=== PATIENT | male | born 1955 | race Caucasian/White ===

== ENCOUNTER → 2018-02-06 | Outpatient (CLI) | END | disposition home or self-care (01) ==

== ENCOUNTER 2018-05-18 08:05 | Inpatient (IN) | payer BC ==
[~2018-05-18] VITALS: Ht 170.2 cm; Wt 69.8 kg
[2018-07-07] VITALS (23 sets, daily range): BP systolic 85–120; BP diastolic 48–78; PULSE 73–86; RESP 12–28; Ht 170.2 cm; Wt 69.8 kg
[2018-07-07] MEDS ORDERED: ROCURONIUM 50 MG INJ ONE ×2 (07:00→08:12)
[2018-07-07] MEDS ORDERED: CELECOXIB 200 MG CAP PO ONE (07:00)
[2018-07-07] MEDS ORDERED: LACTATED RINGER'S 1,000 ML IV* SCH (07:00)
[2018-07-07] MEDS ORDERED: ACETAMINOPHEN 1000MG/100ML IV 100 ML IVPB ONE (07:00)
[2018-07-07] MEDS ORDERED: VANCOMYCIN 1 GM/NS (PMX) 250 ML FOR WT<80 KG IVPB ONE (07:00)
[2018-07-07] MEDS ORDERED: LANSOPRAZOLE 30 MG CAP PO ONE (07:00)
[2018-07-07] MEDS ORDERED: ONDANSETRON 4 MG INJ IV ONE (07:00)
[2018-07-07] MEDS ORDERED: CEFAZOLIN 2 GM/50 ML (PMX) 50 ML IVPB ONE (07:00)
[2018-07-07] MEDS ORDERED: oxyCODONE (CR) 10 MG TAB [oxyCONTIN] PO ONE (07:00)
--- NOTE | 2018-07-07 07:23 | HPN ---
Date/Time of Note Date/Time of Note DATE: 07/07/18 TIME: 07:22 Interval H&P Admission Note Pt. seen H&P reviewed: No system changes Patient denies fever, chills, shortness of breath, chest pain, nausea/vomiting, constipation, diarrhea, numbness, and tingling. MUSCULOSKELETAL: Right lower extremity Skin intact. Well-healed midline incision as well as small other incisions in the lateral aspect of the knee. The knee is erythematous. There is a large subcutaneous abscess over the anterior medial knee. Large effusion. Sensation decreased to light touch in a sural, saphenous, deep peroneal, superficial peroneal, medial and lateral plantar nerve distribution. This decrease in sensation is most intense over the plantar aspect of the foot. Motor is intact, patient able to dorsiflex and plantarflex ankle and extend and flex great toe. Dorsalis Pedis pulse +2, Brisk capillary refill. Compartments are soft. Calves non-tender to palpation bilaterally. EZE BYERS MD July 07, 2018 07:23
[2018-07-07] MEDS ORDERED: METHYLENE BLUE 50 MG/10 ML AMPUL ONE (07:48)
--- NOTE | 2018-07-07 07:50 | PREAC ---
Date/Time of Note Date/Time of Note DATE: 07/07/18 TIME: 07:49 Anesthesia Eval and Record Evaluation Time Pre-Procedure Interview DATE: 07/07/18 TIME: 07:49 Age 63 Sex male NPO: 8 hrs Preoperative diagnosis infected right total knee arthroplasty Planned procedure right total knee stage 1 revision Past Medical History Past Medical History: Includes Pulm: Other (40 PY SMOKING, QUIT 1 YEAR AGO) Heme: Anemia Surgery & Anesthesia Issues No known issue Meds Anticoagulation: No Beta Ulises within 24 hr: No Reason Beta Ulises not given: Pt. not on B-Ulises No Active Prescriptions or Reported Meds Current Medications Lactated Ringer's 1,000 ml @ 125 mls/hr Q8H IV* Last administered on 07/07/18at 06:32; Admin Dose 125 MLS/HR; Start 07/07/18 at 07:00; Stop 07/07/18 at 14:59 Vancomycin HCl 250 ml @ 250 mls/hr PRE-OP ONCE IVPB Last administered on 07/07/18at 06:31; Admin Dose 250 MLS/HR; Start 07/07/18 at 07:00; Stop 07/07/18 at 07:59 Tranexamic Acid 100 ml @ 200 mls/hr AT INCISION ONCE IVPB ; Start 07/07/18 at 08:00; Stop 07/07/18 at 08:29 Tranexamic Acid 100 ml @ 200 mls/hr AT CLOSING ONCE IVPB ; Start 07/07/18 at 13:00; Stop 07/07/18 at 13:29 Meds reviewed: Yes Allergies Coded Allergies: No Known Allergy (Unverified , 06/20/18) Allergies Reviewed: Yes Labs/Studies Labs Reviewed: Reviewed by anesthesiologist Blood Bank Test 07/07/18 06:15 Antibody Screen NEGATIVE Blood Product Summary Counts Blood Type A POSITIVE Crossmatch Red Blood Cells test: N/A Studies: ECG (nl), CXR (nl) Pre-procedure Exam Last vitals Vital Signs Date Temp Pulse Resp B/P (MAP) Pulse Ox O2 O2 Flow FiO2 Time Delivery Rate 07/07/18 97.8 86 18 108/78 98 Room Air 06:55 (88) Airway: Adequate mouth opening, Adequate thyromental dist Mallampati: Mallampati II Teeth: Normal Lung: Normal Heart: Normal ASA Physical Status ASA physical status: 1 Emergency: None Planned Anesthetic General/MAC: MAC Planned Pain Management Parenteral pain med Pre-operative Attestations Prior to commencing anesthesia and surgery, the patient was re-evaluated, there was verification of: *The patient's identity *The results of appropriate recent lab work and preoperative vital signs *The above evaluation not changing prior to induction *Anesthetic plan, risk benefits, alternative and complications discussed with patient/family; questions answered; patient/family understands, accepts and wishes to proceed. Nick Garvin M.D. July 07, 2018 07:50
[2018-07-07] MEDS: VANCOMYCIN 1 GM INJ TOP SCH ×4 (08:00→10:48)
[2018-07-07] MEDS ORDERED: TRANEXAMIC ACID 1GM/100ML(PMX) 100 ML PRE-OP IVPB ONE (08:00)
[2018-07-07] MEDS: TOBRAMYCIN 1.2 GM POWDER TOP SCH ×4 (08:00→10:39)
[2018-07-07] MEDS ORDERED: NEOSTIGMINE 3 MG/3 ML SYRINGE ONE (08:12)
[2018-07-07] MEDS ORDERED: FENTAnyl 50 MCG/ML VIAL ONE (08:12)
[2018-07-07] MEDS ORDERED: MIDAZOLAM 1 MG/ML 2 ML INJ ONE (08:12)
[2018-07-07] MEDS ORDERED: DEXAMETHASONE 4 MG/ML 5 ML INJ ONE (08:12)
[2018-07-07] MEDS ORDERED: ONDANSETRON 4 MG INJ ONE (08:12)
[2018-07-07] MEDS ORDERED: GLYCOPYRROLATE 0.4 MG INJ ONE (08:12)
[2018-07-07] MEDS ORDERED: CEFAZOLIN 1 GM INJ ONE (08:12)
[2018-07-07] MEDS ORDERED: morphine SULFATE/PF (10 MG/10 ML) INJ ONE (08:12)
[2018-07-07] MEDS ORDERED: PROPOFOL 20 ML ONE (08:12)
[2018-07-07] MEDS ORDERED: EPINEPHrine 1 MG INJ ONE (08:13)
[2018-07-07] MEDS ORDERED: TOBRAMYCIN 1.2 GM POWDER ONE (09:23)
[2018-07-07] MEDS ORDERED: TRANEXAMIC ACID 1GM/100ML(PMX) 100 ML AT CLOSING IVPB ONE (13:00)
[2018-07-07] MEDS ORDERED: ROPIVACAINE 0.5 % 30 ML VIAL ONE (14:05)
[2018-07-07] MEDS ORDERED: EPHEDrine SULFATE 50 MG/5 ML SYG IV PRN (14:30)
[2018-07-07] MEDS ORDERED: MEPERIDINE 25 MG INJ IV PRN (14:30)
[2018-07-07] MEDS ORDERED: hydrALAzine 20 MG INJ IV PRN (14:30)
[2018-07-07] MEDS ORDERED: NALBUPHINE HCL (10 MG/1 ML) INJ IV PRN (14:30)
[2018-07-07] MEDS ORDERED: MIDAZOLAM 1 MG/ML 2 ML INJ IV PRN (14:30)
[2018-07-07] MEDS ORDERED: HYDROmorphONE 1 MG/5 ML IV SYRINGE IV PRN ×3 (14:30)
[2018-07-07] MEDS ORDERED: IPRATROPIUM (NEB) 0.5 MG/2.5 ML AMP HHN PRN (14:30)
[2018-07-07] MEDS ORDERED: ZOLPIDEM 5 MG TAB PO PRN (14:30)
[2018-07-07] MEDS ORDERED: FENTAnyl 50 MCG/ML VIAL IV PRN ×3 (14:30)
[2018-07-07] MEDS ORDERED: TRIMETHOBENZAMIDE 100 MG/ML VIAL IM PRN ×2 (14:30)
[2018-07-07] MEDS ORDERED: ALBUTEROL 0.083% (NEB) 2.5 MG/3 ML AMP HHN PRN (14:30)
[2018-07-07] MEDS ORDERED: ONDANSETRON 4 MG INJ IV PRN ×2 (14:30)
[2018-07-07] MEDS ORDERED: HYDROmorphONE 0.5 MG/0.5 ML SYG IV PRN ×2 (14:30)
[2018-07-07] MEDS ORDERED: OXYCODONE/ACETAMINOPHEN (5/325) TAB PO PRN ×2 (14:30)
[2018-07-07] MEDS ORDERED: DIPHENHYDRAMINE 50 MG INJ IV PRN ×3 (14:30→15:30)
[2018-07-07] MEDS ORDERED: LABETALOL HCL 20MG INJ IV PRN (14:30)
[2018-07-07] MEDS ORDERED: NALOXONE (0.4 MG/ML) INJ IV PRN ×2 (14:30→15:30)
[2018-07-07] MEDS ORDERED: SUGAMMADEX SODIUM 200 MG/2 ML VIAL IV ONE (15:14)
--- NOTE | 2018-07-07 15:25 | PAC ---
Date/Time of Note Date/Time of Note DATE: 07/07/18 TIME: 15:25 Post-Anesthesia Notes Post-Anesthesia Note Last documented vital signs Vital Signs Date Temp Pulse Resp B/P (MAP) Pulse Ox O2 O2 Flow FiO2 Time Delivery Rate 07/07/18 97.8 86 18 108/78 98 Room Air 06:55 (88) Activity: WNL Respiratory function: WNL Cardiovascular function: WNL Mental status: Baseline Pain reasonably controlled: Yes Hydration appropriate: Yes Nausea/Vomiting absent: Yes Nick Garvin M.D. July 07, 2018 15:25
[2018-07-07] MEDS ORDERED: HYDROmorphONE 1 MG/ML SYG IV PRN (15:30)
[2018-07-07] MEDS ORDERED: BISACODYL 10 MG SUPP PR PRN (15:30)
[2018-07-07] MEDS ORDERED: BETHANECHOL 25 MG TAB PO PRN (15:30)
[2018-07-07] MEDS ORDERED: oxyCODONE 5 MG TAB PO PRN ×2 (15:30)
[2018-07-07] MEDS ORDERED: NA PHOSPHATE/BIPHOS 133 ML ENEMA PR PRN (15:30)
[2018-07-07] MEDS ORDERED: SENNA/DOCUSATE NA (8.6MG/50MG) TAB PO PRN (15:30)
[2018-07-07] MEDS ORDERED: DOCUSATE SODIUM 100 MG CAP PO ONE (15:30)
[2018-07-07] MEDS ORDERED: MAGNESIUM HYDROXIDE 30ML CUP PO PRN (15:30)
[2018-07-07] MEDS ORDERED: NACL 0.9% 3 ML SYG IV SCH (15:30)
--- NOTE | 2018-07-07 16:27 | CONS ---
Assessment/Plan Assessment/Plan Assessment/Plan (Daily) 63 yo man history of infected R knee prosthesis presents after first stage of elective total knee revision. #R knee revision - Agree with Percocet for post-op pain. - Agree with Zosyn and vanco as empiric antibiotics until cultures result. - PT, weight bearing per orthopedics. #Tobacco use - Patient reports quitting cigarettes but is now vaping - Ordered nicotine patch. Internal medicine will continue to follow. Thank you Dr. Salazar for the consult. Consultation Date/Type/Reason Admit Date/Time July 07, 2018 at 05:46 Date of Consultation: July 07, 2018 Type of Consult Internal Medicine Reason for Consultation Postoperative management Requesting Provider: EZE SALAZAR MD Date/Time of Note DATE: 07/07/18 TIME: 16:09 Hx of Present Illness Mr. Bo is a 63-year-old man with past medical history of arthritis and chronic infection of the right knee. The patient had multiple surgeries of the right knee starting with a R TKR in [facility] around 6 years ago. Apparently there was an infection and he has required a multi-stage surgery with antibiotic spacer. The patient had his latest surgery about 8 months ago at [facility]. As per the patient, his right knee joint was infected and he has been taking antibiotics as per the instructions of his primary care physicians. He also verbalized that he had a PICC line at one point of time for antimicrobial therapy. He was hospitalized at [facility] 06/21-06/23 with R knee pain and effusion. Dr. Salazar did an arthrocentesis which grew philip-sensitive enterobacter. He got IV vanco and zosyn in the hospital and was discharged on a course of Keflex and Bactrim. He then saw Dr. Salazar in clinic on 06/28 at which point antibiotics were stopped and a two-stage total knee revision with antibiotic spacer was planned. The days prior to admission he denies worsening symptoms. Pain well controlled by smoking cannabis. He has not taken prescribed [place]. Today 07/07 he was taken to OR for the elective first stage. Postoperative he is doing well. He denies recent fever, chills, night sweats, weight loss, anorexia, nausea, vomiting, abdominal pain, chest pain/pressure/palpitations, dyspnea, cough, diarrhea, constipation. Past Medical History Medical History: no pertinent history Home Meds No Active Prescriptions or Reported Meds Medications Current Medications Hydromorphone HCl (Dilaudid) 0.2 mg PACU PRN IV MILD PAIN 1-3; Start 07/07/18 at 14:30; Stop 07/07/18 at 21:00 Hydromorphone HCl (Dilaudid) 0.4 mg PACU PRN IV MOD PAIN 4-6; Start 07/07/18 at 14:30; Stop 07/07/18 at 21:00 Hydromorphone HCl (Dilaudid) 0.6 mg PACU PRN IV SEVERE PAIN 7-10; Start 07/07/18 at 14:30; Stop 07/07/18 at 21:00 Fentanyl (Sublimaze) 25 mcg PACU ORDER PRN IV MILD PAIN 1-3; Start 07/07/18 at 14:30; Stop 07/07/18 at 21:00 Fentanyl (Sublimaze) 50 mcg PACU ORDER PRN IV MOD PAIN 4-6; Start 07/07/18 at 14:30; Stop 07/07/18 at 21:00 Fentanyl (Sublimaze) 75 mcg PACU ORDER PRN IV SEVERE PAIN 7-10; Start 07/07/18 at 14:30; Stop 07/07/18 at 21:00 Oxycodone/ Acetaminophen (Percocet (5/ 325)) 1 tab PACU ORDER PRN PO .PAIN 1-5; Start 07/07/18 at 14:30; Stop 07/07/18 at 21:00 Oxycodone/ Acetaminophen (Percocet (5/ 325)) 2 tab PACU ORDER PRN PO .PAIN 6-10; Start 07/07/18 at 14:30; Stop 07/07/18 at 21:00 Ondansetron HCl (Zofran Inj) 4 mg PACU ORDER PRN IV NAUSEA/VOMITING; Start 07/07/18 at 14:30; Stop 07/07/18 at 21:00 Trimethobenzamide HCl (Tigan) 200 mg PACU ORDER PRN IM NAUSEA/VOMITING; Start 07/07/18 at 14:30; Stop 07/07/18 at 21:00 Labetalol HCl (Labetalol) 5 mg PACU ORDER PRN IV HIGH BLOOD PRESSURE; Start 07/07/18 at 14:30; Stop 07/07/18 at 21:00 Hydralazine HCl (Apresoline) 5 mg PACU ORDER PRN IV HIGH BLOOD PRESSURE; Start 07/07/18 at 14:30; Stop 07/07/18 at 21:00 Ephedrine Sulfate 5 mg PACU ORDER PRN IV BLOOD PRESSURE SUPPORT; Start 07/07/18 at 14:30; Stop 07/07/18 at 21:00 Albuterol (Proventil 0.083% (Neb)) 2.5 mg PACU ORDER PRN HHN .WHEEZING; Start 07/07/18 at 14:30; Stop 07/07/18 at 21:00 Ipratropium [place] (Atrovent 0.02% (Neb)) 0.5 mg PACU ORDER PRN HHN .WHEEZING; Start 07/07/18 at 14:30; Stop 07/07/18 at 21:00 Meperidine HCl (Demerol) 25 mg PACU ORDER PRN IV .RIGORS; Start 07/07/18 at 14:30; Stop 07/07/18 at 21:00 Diphenhydramine HCl (Benadryl) 25 mg PACU ORDER PRN IV .PRURITUS; Start 07/07/18 at 14:30; Stop 07/07/18 at 21:00 Midazolam HCl (Versed) 0.5 mg PACU ORDER PRN IV .ANXIETY; Start 07/07/18 at 14:30; Stop 07/07/18 at 21:00 Hydromorphone HCl (Dilaudid) 0.2 mg Q2H PRN IV .PAIN 1-5; Start 07/07/18 at 14:30; Stop 07/08/18 at 08:17 Hydromorphone HCl (Dilaudid) 0.4 mg Q2H PRN IV .PAIN 6-10; Start 07/07/18 at 14:30; Stop 07/08/18 at 08:17 Diphenhydramine HCl (Benadryl) 25 mg Q4H PRN IV .PRURITUS; Start 07/07/18 at 14:30; Stop 07/08/18 at 08:17 Nalbuphine HCl (Nubain) 10 mg Q4H PRN IV .PRURITUS; Start 07/07/18 at 14:30; Stop 07/08/18 at 08:17 Ondansetron HCl (Zofran Inj) 4 mg Q6H PRN IV .NAUSEA/VOMITING; Start 07/07/18 at 14:30; Stop 07/08/18 at 08:17 Trimethobenzamide HCl (Tigan) 200 mg Q6H PRN IM .NAUSEA/VOMITING; Start 07/07/18 at 14:30; Stop 07/08/18 at 08:17 Zolpidem Tartrate (Ambien) 5 mg HS MAY REPEAT X 1 PRN PO .INSOMNIA; Start 07/07/18 at 14:30; Stop 07/08/18 at 08:17 Naloxone HCl (Narcan) 0.2 mg Q2M PRN IV .RESP RATE; Start 07/07/18 at 14:30; Stop 07/08/18 at 08:17 Miscellaneous Information (* Miscellaneous Pharmacy Order) DURAMORPH: 0.2 MG SPI... GIVEN NEURAXIAL XX ; Start 07/07/18 at 14:30; Stop 07/08/18 at 08:17 Lactated Ringer's 1,000 ml @ 80 mls/hr [id number] IV ; Start 07/07/18 at 15:12 IV Flush (NS 3 ml) 3 ml PER PROTOCOL IV ; Start 07/07/18 at 15:30 Oxycodone HCl (Roxicodone) 15 mg Q4H PRN PO .PAIN; Start 07/07/18 at 15:30 Oxycodone HCl (Roxicodone) 10 mg Q4H PRN PO .PAIN; Start 07/07/18 at 15:30 Oxycodone HCl (Roxicodone) 5 mg Q4H PRN PO .PAIN; Start 07/07/18 at 15:30 Hydromorphone HCl (Dilaudid) 1 mg Q3H PRN IV .BREAKTHROUGH PAIN; Start 07/07/18 at 15:30 Acetaminophen (Tylenol Tab) 1,000 mg Q8 PO ; Start 07/07/18 at 22:00 Ondansetron HCl (Zofran Inj) 4 mg Q4H PRN IV NAUSEA/VOMITING; Start 07/08/18 at 15:30 Vancomycin HCl 250 ml @ 125 mls/hr Q12H IVPB ; Start 07/07/18 at 18:00 Gabapentin (Neurontin) 300 mg QHS PO ; Start 07/07/18 at 21:00 Pantoprazole (Protonix Tab) 40 mg DAILY@06 PO ; Start 07/09/18 at 06:00 Docusate Sodium (Colace) 200 mg BID PO ; Start 07/08/18 at 09:00; Stop 07/11/18 at 08:59 Simethicone (Mylicon) 80 mg TID PRN PO .GAS; Start 07/07/18 at 15:30 Senna/Docusate Sodium (Senokot-S) 2 tab BID PRN PO .CONSTIPATION; Start 07/07/18 at 15:30 Magnesium Hydroxide (Milk Of Mag) 30 ml HS PRN PO .CONSTIPATION; Start 07/07/18 at 15:30 Bisacodyl (Dulcolax Supp) 10 mg DAILY PRN [place] .CONSTIPATION; Start 07/07/18 at 15:30 Sodium Biphosphate/ Sodium Phosphate (Fleet Enema) 133 ml DAILY PRN WI .CONST IPATION; Start 07/07/18 at 15:30 Diphenhydramine HCl (Benadryl) 25 mg Q4H PRN IV .ITCHING; Start 07/07/18 at 15:30 Naloxone HCl (Narcan) 0.2 mg Q2M PRN IV .RESP RATE; Start 07/07/18 at 15:30 Bethanechol Chloride (Urecholine) 25 mg URINARY CATH D/C PRN PO UNABLE TO VOID; Start 07/07/18 at 15:30 Aspirin (Halfprin) 81 mg BID PO ; Start 07/08/18 at 09:00 Piperacillin Sod/ Tazobactam Sod 50 ml @ 100 mls/hr Q8 IVPB ; Start 07/07/18 at 22:00 Allergies: Coded Allergies: No Known Allergy (Unverified , 06/20/18) Past Surgical History 6 R knee surgeries total, most recently today 07/07. L knee total arthroplasty. Cholecystectomy Tonsillectomy L rotator cuff surgery. Social History Alcohol Use: occasionally Smoking Status: Current every day smoker (Uses vaporized nicotine. ) Drug Use: marijuana (as needed for knee pain) Exam/Review of Systems Exam Vitals Vital Signs Date Temp Pulse Resp B/P (MAP) Pulse Ox O2 O2 Flow FiO2 Time Delivery Rate 07/07/18 98.0 15:34 07/07/18 86 18 108/78 98 Room Air 06:55 (88) Exam Gen: Well developed man in no acute distress. Eyes: PERRL, no icterus HEENT: Clear oropharynx, moist mucous membranes Neck: Supple, nontender, no lymphadenopathy Card: Regular rate and rhythm, no murmurs Pulm: Clear to auscultation bilaterally Abd: Soft, nontender, nondistended. Ext: L knee scar well healed. R knee bandaged with sanguinous drainage from surgical drain. Peripheral toe wiggle and sensation intact. Skin: warm, dry, well perfused. Medications Medication Current Medications Hydromorphone HCl (Dilaudid) 0.2 mg PACU PRN IV MILD PAIN 1-3; Start 07/07/18 at 14:30; Stop 07/07/18 at 21:00 Hydromorphone HCl (Dilaudid) 0.4 mg PACU PRN IV MOD PAIN 4-6; Start 07/07/18 at 14:30; Stop 07/07/18 at 21:00 Hydromorphone HCl (Dilaudid) 0.6 mg PACU PRN IV SEVERE PAIN 7-10; Start 07/07/18 at 14:30; Stop 07/07/18 at 21:00 Fentanyl (Sublimaze) 25 mcg PACU ORDER PRN IV MILD PAIN 1-3; Start 07/07/18 at 14:30; Stop 07/07/18 at 21:00 Fentanyl (Sublimaze) 50 mcg PACU ORDER PRN IV MOD PAIN 4-6; Start 07/07/18 at 14:30; Stop 07/07/18 at 21:00 Fentanyl (Sublimaze) 75 mcg PACU ORDER PRN IV SEVERE PAIN 7-10; Start 07/07/18 at 14:30; Stop 07/07/18 at 21:00 Oxycodone/ Acetaminophen (Percocet (5/ 325)) 1 tab PACU ORDER PRN PO .PAIN 1-5; Start 07/07/18 at 14:30; Stop 07/07/18 at 21:00 Oxycodone/ Acetaminophen (Percocet (5/ 325)) 2 tab PACU ORDER PRN PO .PAIN 6-10; Start 07/07/18 at 14:30; Stop 07/07/18 at 21:00 Ondansetron HCl (Zofran Inj) 4 mg PACU ORDER PRN IV NAUSEA/VOMITING; Start 07/07/18 at 14:30; Stop 07/07/18 at 21:00 Trimethobenzamide HCl (Tigan) 200 mg PACU ORDER PRN IM NAUSEA/VOMITING; Start 07/07/18 at 14:30; Stop 07/07/18 at 21:00 Labetalol HCl (Labetalol) 5 mg PACU ORDER PRN IV HIGH BLOOD PRESSURE; Start 07/07/18 at 14:30; Stop 07/07/18 at 21:00 Hydralazine HCl (Apresoline) 5 mg PACU ORDER PRN IV HIGH BLOOD PRESSURE; Start 07/07/18 at 14:30; Stop 07/07/18 at 21:00 Ephedrine Sulfate 5 mg PACU ORDER PRN IV BLOOD PRESSURE SUPPORT; Start 07/07/18 at 14:30; Stop 07/07/18 at 21:00 Albuterol (Proventil 0.083% (Neb)) 2.5 mg PACU ORDER PRN HHN .WHEEZING; Start 07/07/18 at 14:30; Stop 07/07/18 at 21:00 Ipratropium [place] (Atrovent 0.02% (Neb)) 0.5 mg PACU ORDER PRN HHN .WHEEZING; Start 07/07/18 at 14:30; Stop 07/07/18 at 21:00 Meperidine HCl (Demerol) 25 mg PACU ORDER PRN IV .RIGORS; Start 07/07/18 at 14:30; Stop 07/07/18 at 21:00 Diphenhydramine HCl (Benadryl) 25 mg PACU ORDER PRN IV .PRURITUS; Start 07/07/18 at 14:30; Stop 07/07/18 at 21:00 Midazolam HCl (Versed) 0.5 mg PACU ORDER PRN IV .ANXIETY; Start 07/07/18 at 14:30; Stop 07/07/18 at 21:00 Hydromorphone HCl (Dilaudid) 0.2 mg Q2H PRN IV .PAIN 1-5; Start 07/07/18 at 14:30; Stop 07/08/18 at 08:17 Hydromorphone HCl (Dilaudid) 0.4 mg Q2H PRN IV .PAIN 6-10; Start 07/07/18 at 14:30; Stop 07/08/18 at 08:17 Diphenhydramine HCl (Benadryl) 25 mg Q4H PRN IV .PRURITUS; Start 07/07/18 at 14:30; Stop 07/08/18 at 08:17 Nalbuphine HCl (Nubain) 10 mg Q4H PRN IV .PRURITUS; Start 07/07/18 at 14:30; Stop 07/08/18 at 08:17 Ondansetron HCl (Zofran Inj) 4 mg Q6H PRN IV .NAUSEA/VOMITING; Start 07/07/18 at 14:30; Stop 07/08/18 at 08:17 Trimethobenzamide HCl (Tigan) 200 mg Q6H PRN IM .NAUSEA/VOMITING; Start 07/07/18 at 14:30; Stop 07/08/18 at 08:17 Zolpidem Tartrate (Ambien) 5 mg HS MAY REPEAT X 1 PRN PO .INSOMNIA; Start 07/07/18 at 14:30; Stop 07/08/18 at 08:17 Naloxone HCl (Narcan) 0.2 mg Q2M PRN IV .RESP RATE; Start 07/07/18 at 14:30; Stop 07/08/18 at 08:17 Miscellaneous Information (* Miscellaneous Pharmacy Order) DURAMORPH: 0.2 MG SPI... GIVEN NEURAXIAL XX ; Start 07/07/18 at 14:30; Stop 07/08/18 at 08:17 Lactated Ringer's 1,000 ml @ 80 mls/hr [id number] IV ; Start 07/07/18 at 15:12 IV Flush (NS 3 ml) 3 ml PER PROTOCOL IV ; Start 07/07/18 at 15:30 Oxycodone HCl (Roxicodone) 15 mg Q4H PRN PO .PAIN; Start 07/07/18 at 15:30 Oxycodone HCl (Roxicodone) 10 mg Q4H PRN PO .PAIN; Start 07/07/18 at 15:30 Oxycodone HCl (Roxicodone) 5 mg Q4H PRN PO .PAIN; Start 07/07/18 at 15:30 Hydromorphone HCl (Dilaudid) 1 mg Q3H PRN IV .BREAKTHROUGH PAIN; Start 07/07/18 at 15:30 Acetaminophen (Tylenol Tab) 1,000 mg Q8 PO ; Start 07/07/18 at 22:00 Ondansetron HCl (Zofran Inj) 4 mg Q4H PRN IV NAUSEA/VOMITING; Start 07/08/18 at 15:30 Vancomycin HCl 250 ml @ 125 mls/hr Q12H IVPB ; Start 07/07/18 at 18:00 Gabapentin (Neurontin) 300 mg QHS PO ; Start 07/07/18 at 21:00 Pantoprazole (Protonix Tab) 40 mg DAILY@06 PO ; Start 07/09/18 at 06:00 Docusate Sodium (Colace) 200 mg BID PO ; Start 07/08/18 at 09:00; Stop 07/11/18 at 08:59 Simethicone (Mylicon) 80 mg TID PRN PO .GAS; Start 07/07/18 at 15:30 Senna/Docusate Sodium (Senokot-S) 2 tab BID PRN PO .CONSTIPATION; Start 07/07/18 at 15:30 Magnesium Hydroxide (Milk Of Mag) 30 ml HS PRN PO .CONSTIPATION; Start 07/07/18 at 15:30 Bisacodyl (Dulcolax Supp) 10 mg DAILY PRN WI .CONSTIPATION; Start 07/07/18 at 15:30 Sodium Biphosphate/ Sodium Phosphate (Fleet Enema) 133 ml DAILY PRN WI .C ONSTIPATION; Start 07/07/18 at 15:30 Diphenhydramine HCl (Benadryl) 25 mg Q4H PRN IV .ITCHING; Start 07/07/18 at 15:30 Naloxone HCl (Narcan) 0.2 mg Q2M PRN IV .RESP RATE; Start 07/07/18 at 15:30 Bethanechol Chloride (Urecholine) 25 mg URINARY CATH D/C PRN PO UNABLE TO VOID; Start 07/07/18 at 15:30 Aspirin (Halfprin) 81 mg BID PO ; Start 07/08/18 at 09:00 Piperacillin Sod/ Tazobactam Sod 50 ml @ 100 mls/hr Q8 IVPB ; Start 07/07/18 at 22:00 MARCELA VACA MD July 07, 2018 16:19
[2018-07-07] MEDS: LACTATED RINGER'S 1,000 ML IV SCH ×2 (16:55→17:17)
[2018-07-07] MEDS: VANCOMYCIN 1 GM (PMX) 250 ML IVPB SCH (17:34)
[2018-07-07] MEDS: GABAPENTIN 300 MG CAP PO SCH (21:25)
[2018-07-07] MEDS: ACETAMINOPHEN 500 MG TAB PO SCH (21:42)
[2018-07-07] MEDS: PIPER-TAZO 2.25 GM (PMX) 50 ML IVPB SCH (21:42)
[2018-07-07] MEDS: NICOTINE (7 MG/24 HR) PATCH TRANSDERM SCH (21:43)
--- NOTE | 2018-07-07 23:28 | OPR ---
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 23 x 8 cm Explantation of right total knee arthroplasty and implementation of antibiotic spacer Application of negative pressure dressing Surgeon see signature line Instrument Maintenance Supervisor Josh Villagomez Anesthesia Type: general, spinal Estimated Blood Loss: other (400-600 mL) Transfusion none Specimen 6 specimens. All specimens sent for aerobic, anaerobic, fungal, AFB cultures. 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 He he has previously undergone two two-stage revisions for infection. This will be his 6 surgery. His last surgery was reimplantation of the knee at [facility] about a year ago. He has been infected for several months at this time. Aspiration, ESR, CRP, cu lture diagnosed him with a septic right total knee arthroplasty. The patient did not have any fevers or chills or other systemic symptoms of infection. He continued to have severe pain in the knee with swelling and erythema. I recommended to the patient that he undergo another two-stage revision. I did juvenile counselor the patient of the risk of failure given that he has had 2 previous two- stage revisions with failure to eradicate infection. I did discuss with the patient that if this failed the next step would likely be a fusion or an amputation above the knee. Benefits and risks discussed the patient he understood these risks and wished to proceed with surgery. Risks include but not limited to risks from anesthesia, cardiopulmonary complications, medical com plications, bleeding, infection, failure to eradicate infection, fracture, bone loss, instability, loosening, neurovascular injury, pain, stiffness, need for further surgery. Procedure in detail: The patient was brought to the operating room. He was give n a spinal anesthetic. Was transferred to the operating table in the supine position. All bony problems well-padded. At this time his right lower extremity was prepped and draped in normal sterile fashion. The previous incision was marked out. A timeout was performed from the patient's name medical record number diagnosis, procedure to be performed, and laterality procedure. Vancomycin and Ancef was dosed appropriately. At this time the previous midline incision was used. An incision approximately 23 cm in length was utilized. There was significant scar tissue. The tissue planes were obliterated from multiple previous surgeries. Previous Ethibond suture was found and debrided. An 18-gauge needle was used to aspirate fluid prior to the arthrotomy. This was sent for culture. Once full-thickness medial lateral skin flaps performed a medial parapatellar arthrotomy was performed. This time we encountered significant amount of purulent discharge from the knee. In addition there was a subcutaneous abscess in continuity with the joint along the anterior medial aspect. This was debrided and tissue was sent for culture. This abscess again was in continuity with the joint through the medial soft tissue. The anterior medial soft tissue of the knee with a medial parapatellar arthrotomy is normally done was necrotic and eroded at the level of the proximal tibia. At this time the medial and lateral gutters were debrided sharply and excised. There was a complete synovectomy. The synovium as well as the medial and lateral gutters were full of purulent material as well as necrotic tissue. Care was taken to mobilize the patella. At this time the patella was subluxated laterally and the knee was hyperflexed. The knee was dislocated. There was a screw holding the poly-in place. This was removed with a screwdriver. The screw had soft tissue around it and was sent for culture. The poly-was then easily explanted. At this time attention turned towards the femur. A curette was used to visualize the bone cement interface. Once this was done a microsagittal saw was used to break the bone cement interface. There is significant distal and posterior augments. Once this was complete retro-regional refrigerated cdl truck driver was used to carefully explant the femur and femoral stem. The femoral components came out without any additional bone loss. Again of note there was significant medial distal and posterior augmentation to the previous prosthesis. Soft tissue from the femur as well as the femoral canal was sent for culture Attention turned towards the tibia. The cement filling in the medial tibial defect and the tibial prosthesis was extremely soft and consistent with cement from an antibiotic spacer. This event was easily curetted away a microsagittal saw was used to with break apart the bone cement interface. The retro-regional refrigerated cdl truck driver was then used to explant the tibial tray, cone and stem. There was no bone loss with this explantation. Soft tissue from the tibia and tibial canal was sent for culture. The remainder of the cement was debrided. At this time large uncontained defects of the tibia mostly anterior medial was appreciated. The tibial plateau was significantly resected below the level of the fibular head. The MCL was very attenuated. At this time continued with a very thorough debridement. A combination of curettes and rongeurs and back hoes were used to debride the bone and soft tissue. The femoral and tibial canals were reamed by hand for further debridement. The versa jet was then used to debride the surfaces of all bone and soft tissue deep and superficial. Once this was done copious irrigation of approximately 12 L in the femoral canal, tibial canal, and soft tissues of the knee. A mixture of sterile Betadine and hydrogen peroxide was used to further debride the knee. This was placed down the canals as well as soft tissues. This was to allow this in the wound for 3-5 minutes. This was then irrigated and cleaned out. The knee appeared very clean. There is no necrotic tissue or purulent material. At this time stimulan bullet 7 mm in diameter were placed in the femoral and tibial canal. These bullets contained 2 g of vancomycin and 1.2 g of tobramycin per 20 mL of stimulan. Approximately 10 to 12 mL's of stimulan was inserted into the canals. Stimulan beads were also made with 1g of vancomycin and 0.6 g of tobramycin. These were saved for end of the case. 1 pack of cement with 3 g of vancomycin and 3.6 g of stimulant and a couple drops of methylene blue was mixed not under suction. Tibial femoral stems were then fashioned with K wires as an endoskeleton. A hook was made at the end to ease explantation and exudate. After the cement was began to harden there were placed in the tibia and femur to ensure that they were the correct size and molded correctly. These were then taken out to cure. 2 bags of cement were mixed with couple drops Methylin blue and 6 g of vancomycin and 7.2 g of tobramycin. This was used to create the cement spacer. This was placed over the tibia and femur followed by gentle implantation of a size 3 Sigma PS femur and a size 3 8 mm thickness PS poly-insert. Of note the backside the poly-insert was roughened with a rasp under power. The knee was then brought into extension with axial traction to allow for the spacer to harden. Unfortunately secondary to the severe uncontained bone defect of the anterior medial tibia. The tibial spacer continue to fall into varus despite efforts to prevent it from doing so. The handling of the cement secondary to antibiotics would not allow us to properly support the tibia and alignment. Although the spacer was not in an ideal mechanical alignment and stability the primary purpose of the spacer was to treat the infection which the spacer was doing. Therefore it was decided not to remove the spacer and build another one as this would be required discarding many grams antibiotics. Given that stability and function of the spacer was secondary to current infection but the space was left intact. Once the cement hardened the knee was able to be brought into full range of motion with 10 degrees of recurvatum and 130 degrees of flexion. The patella was not tracking well. Therefore a lateral release was performed and the patella was tracking well. It was believed that it is important that the patella tracked in between the first and second stages to ensure good mobilization at the second stage. At this time a medium Hemovac was placed exiting anterolaterally. A this time 10 mL's of stimulan beads were placed within the joint. The medial parapatellar arthrotomy was closed with #1 PDS suture in [id number] fashion. Of note the most distal end of the medial parapatellar arthrotomy was chronic at the time of the incision. This was debrided. However this did leave an opening in the medial parapatellar arthrotomy. The subcutaneous abscess that was continuity through this defect compromised the overlying skin as this was about to become a draining sinus. Therefore the compromised skin that would later become necrotic was ellipsed and excised. This was closed primarily 2-0 nylon suture. Once the medial patella was closed tissues were closed with 2-0 PDS suture in simple fashion. The skin was closed with sneha. Midline incision as well as the incision abscess were covered with a incisional VAC. Patient was placed in a knee immobilizer. All counts were correct x2 Disposition: Patient was awoken and transferred to PACU in stable condition. He will be nonweightbearing on the right lower extremity. He will remain in a knee immobilizer with no motion until the wound is healed approximately 2 weeks. At that time he will be allowed to start ranging his knee. It is unlikely that he would be a let him weight-bear given the instability of the spacer. However after the wound is healed that he can try to partial weight-bear to see how that goes. He will be admitted to the hospital. His hospital still likely be approximately 5 days all final cultures are being obtained. He will be receiving vancomycin and Zosyn until cultures return and antibiotic can be tailo red. The patient will need a PICC line. Infectious disease will be consulted after the weekend. patient will be on aspirin 81 mg twice daily for DVT prophylaxis. Patient will get new CBC with diff, ESR, and CRP labs immediately before IV antibiotics were discontinued. He will then obtain another set of labs every 2 weeks until surgery. Patient will follow-up with me 2 weeks postop EZE BYERS MD July 07, 2018 23:27
[2018-07-08] VITALS: BP 92/57; PULSE 87; RESP 20
[2018-07-08] MEDS: PIPER-TAZO 2.25 GM (PMX) 50 ML IVPB SCH ×2 (05:45→14:25)
[2018-07-08] MEDS: ACETAMINOPHEN 500 MG TAB PO SCH ×3 (05:57→21:16)
[2018-07-08] MEDS: VANCOMYCIN 1 GM (PMX) 250 ML IVPB SCH ×2 (06:46→18:36)
[2018-07-08 07:03] VITALS: BP 99/57; PULSE 79; RESP 14
[2018-07-08] MEDS: NICOTINE (7 MG/24 HR) PATCH TRANSDERM SCH (08:12)
[2018-07-08] MEDS: ASPIRIN (EC) 81 MG TAB PO SCH ×2 (08:12→21:16)
[2018-07-08] MEDS: DOCUSATE SODIUM 100 MG CAP PO SCH ×2 (08:12→21:16)
[2018-07-08 14:16] VITALS: BP 94/50; PULSE 94; RESP 15
[2018-07-08] MEDS: oxyCODONE 5 MG TAB PO PRN ×2 (14:24→21:16)
--- NOTE | 2018-07-08 15:14 | CONS ---
Assessment/Plan Assessment/Plan Assessment/Plan (Daily) 63 yo man history of infected R knee prosthesis presents after first stage of elective total knee revision. #R knee revision - Agree with Percocet for post-op pain. - Agree with Zosyn and vanco as empiric antibiotics until cultures result. - PT, weight bearing per orthopedics. #Tobacco use - Patient reports quitting cigarettes but is now vaping - nicotine patch. Internal medicine will continue to follow. Thank you Dr. Salazar for the consult. Consultation Date/Type/Reason Admit Date/Time July 07, 2018 at 05:46 Initial Consult Date 07/07/18 Type of Consult Internal Medicine Requesting Provider: EZE SALAZAR MD Date/Time of Note DATE: 07/08/18 TIME: 15:13 24 HR Interval Summary Free Text/Dictation Patient doing well. Walking with physical therapy today NWB on R leg, using walker. Pain adequately controlled. Exam/Review of Systems Exam Vitals Vital Signs Date Temp Pulse Resp B/P (MAP) Pulse Ox O2 O2 Flow FiO2 Time Delivery Rate 07/08/18 98.5 94 15 94/50 (65) 100 Room Air 14:16 07/07/18 3.0 15:30 Intake and Output 07/07/18 07/07/18 07/08/18 1515:00 23:00 07:00 IntakeIntake Total 200 ml 5120 ml 950 ml OutputOutput Total 750 ml 260 ml 90 ml BalanceBalance -550 ml 4860 ml 860 ml Exam Gen: Well developed man in no acute distress. Eyes: PERRL, no icterus HEENT: Clear oropharynx, moist mucous membranes Neck: Supple, nontender, no lymphadenopathy Card: Regular rate and rhythm, no murmurs Pulm: Clear to auscultation bilaterally Abd: Soft, nontender, nondistended. Ext: L knee scar well healed. R knee bandaged with sanguinous drainage from surgical drain. Peripheral toe wiggle and sensation intact. Slightly diminished peripheral pulses. Skin: warm, dry, well perfused. Results Result Diagram: 07/08/18 0442 07/08/18 0442 Medications Medication Current Medications IV Flush (NS 3 ml) 3 ml PER PROTOCOL IV ; Start 07/07/18 at 15:30 Oxycodone HCl (Roxicodone) 15 mg Q4H PRN PO .PAIN Last administered on 07/08/18 14:24; Admin Dose 15 MG; Start 07/07/18 at 15:30 Oxycodone HCl (Roxicodone) 10 mg Q4H PRN PO .PAIN Last administered on 07/08/18at 10:13; Admin Dose 10 MG; Start 07/07/18 at 15:30 Oxycodone HCl (Roxicodone) 5 mg Q4H PRN PO .PAIN; Start 07/07/18 at 15:30 Hydromorphone HCl (Dilaudid) 1 mg Q3H PRN IV .BREAKTHROUGH PAIN; Start 07/07/18 at 15:30 Acetaminophen (Tylenol Tab) 1,000 mg Q8 PO Last administered on 07/08/18 14:25; Admin Dose 1,000 MG; Start 07/07/18 at 22:00 Ondansetron HCl (Zofran Inj) 4 mg Q4H PRN IV NAUSEA/VOMITING; Start 07/08/18 at 15:30 Vancomycin HCl 250 ml @ 125 mls/hr Q12H IVPB Last administered on 07/08/18at 06:46; Admin Dose 125 MLS/HR; Start 07/07/18 at 18:00 Gabapentin (Neurontin) 300 mg QHS PO Last administered on 07/07/18at 21:25; Admin Dose 300 MG; Start 07/07/18 at 21:00 Pantoprazole (Protonix Tab) 40 mg DAILY@06 PO ; Start 07/09/18 at 06:00 Docusate Sodium (Colace) 200 mg BID PO Last administered on 07/08/18at 08:12; Admin Dose 200 MG; Start 07/08/18 at 09:00; Stop 07/11/18 at 08:59 Simethicone (Mylicon) 80 mg TID PRN PO .GAS; Start 07/07/18 at 15:30 Senna/Docusate Sodium (Senokot-S) 2 tab BID PRN PO .CONSTIPATION; Start 07/07/18 at 15:30 Magnesium Hydroxide (Milk Of Mag) 30 ml HS PRN PO .CONSTIPATION; Start 07/07/18 at 15:30 Bisacodyl (Dulcolax Supp) 10 mg DAILY PRN [place] .CONSTIPATION; Start 07/07/18 at 15:30 Sodium Biphosphate/ Sodium Phosphate (Fleet Enema) 133 ml DAILY PRN [place] .CONSTIPATION; Start 07/07/18 at 15:30 Diphenhydramine HCl (Benadryl) 25 mg Q4H PRN IV .ITCHING Last administered on 07/08/18 10:14; Admin Dose 25 MG; Start 07/07/18 at 15:30 Naloxone HCl (Narcan) 0.2 mg Q2M PRN IV .RESP RATE; Start 07/07/18 at 15:30 Bethanechol Chloride (Urecholine) 25 mg URINARY CATH D/C PRN PO UNABLE TO VOID Last administered on 07/08/18 10:02; Admin Dose 25 MG; Start 07/07/18 at 15:30 Aspirin (Halfprin) 81 mg BID PO Last administered on 07/08/18 08:12; Admin Dose 81 MG; Start 07/08/18 at 09:00 Piperacillin Sod/ Tazobactam Sod 50 ml @ 100 mls/hr Q8 IVPB Last administered on 07/08/18 14:25; Admin Dose 100 MLS/HR; Start 07/07/18 at 22:00 Nicotine (Nicoderm 7 Mg/ 24 Hr) 1 patch DAILY TRANSDERM Last administered on 07/08/18 08:12; Admin Dose 1 PATCH; Start 07/07/18 at 17:00 MARCELA VACA MD July 08, 2018 15:14
[2018-07-08] MEDS ORDERED: ONDANSETRON 4 MG INJ IV PRN (15:30)
[2018-07-08] MEDS: PIPER-TAZO 3.375 GM IV (PMX) 100 ML IVPB SCH ×2 (18:01→23:32)
[2018-07-08 19:35] VITALS: BP 127/60; PULSE 93; RESP 18
[2018-07-08] MEDS: GABAPENTIN 300 MG CAP PO SCH (21:16)
[2018-07-09 02:25] VITALS: BP 106/57; PULSE 88; RESP 18
[2018-07-09] MEDS: PIPER-TAZO 3.375 GM IV (PMX) 100 ML IVPB SCH ×3 (05:28→17:32)
[2018-07-09] MEDS: PANTOPRAZOLE (EC) 40 MG TAB PO SCH (05:29)
[2018-07-09] MEDS: ACETAMINOPHEN 500 MG TAB PO SCH ×3 (05:29→22:54)
[2018-07-09] MEDS: oxyCODONE 5 MG TAB PO PRN ×3 (06:23→17:33)
[2018-07-09 07:57] VITALS: BP 106/62; PULSE 95; RESP 18
[2018-07-09] MEDS: DOCUSATE SODIUM 100 MG CAP PO SCH ×2 (08:57→20:29)
[2018-07-09] MEDS: NICOTINE (7 MG/24 HR) PATCH TRANSDERM SCH (08:57)
[2018-07-09] MEDS: ASPIRIN (EC) 81 MG TAB PO SCH ×2 (08:57→20:29)
[2018-07-09] MEDS: VANCOMYCIN 750 MG (PMX) 250 ML IVPB SCH ×2 (08:58→20:29)
--- NOTE | 2018-07-09 14:00 | PN ---
Date/Time of Note Date/Time of Note DATE: 07/09/18 TIME: 13:59 Assessment/Plan VTE Prophylaxis Risk score (from Ns)>0 risk: 6 SCD applied (from Ns): Yes Pharmacological prophylaxis: NA/contraindicated Pharm contraindication: low risk/ambulating Lines/Catheters IV Catheter Type (from Nrsg): Peripheral IV Urinary Cath still in place: No Assessment/Plan Assessment/Plan 63 yo man history of infected R knee prosthesis presents after first stage of elective total knee revision. #R knee revision - Agree with Percocet for post-op pain. - Agree with Zosyn and vanco as empiric antibiotics until cultures result. - PT, weight bearing per orthopedics. #Nicotine use - Patient reports quitting cigarettes but is now vaping - nicotine patch. Internal medicine will continue to follow Result Diagram: 07/09/18 0434 07/09/184 Subjective 24 Hr Interval Summary Free Text/Dictation No acute overnight events. Patient doing well. Pain well controlled. Exam/Review of Systems Exam Vitals Vital Signs Date Temp Pulse Resp B/P (MAP) Pulse Ox O2 O2 Flow FiO2 Time Delivery Rate 07/09/18 36.4 13:47 07/09/18 95 18 106/62 96 Room Air 07:57 (77) 07/07/18 3.0 15:30 Intake and Output 07/08/18 07/08/18 07/09/18 1515:00 23:00 07:00 IntakeIntake Total 1110 ml 700 ml 200 ml OutputOutput Total 400 ml 380 ml 800 ml BalanceBalance 710 ml 320 ml -600 ml Exam Gen: Well developed man in no acute distress. Eyes: PERRL, no icterus HEENT: Clear oropharynx, moist mucous membranes Neck: Supple, nontender, no lymphadenopathy Card: Regular rate and rhythm, no murmurs Pulm: Clear to auscultation bilaterally Abd: Soft, nontender, nondistended. Ext: L knee scar well healed. R knee bandaged with sanguinous drainage from surgical drain. Peripheral toe wiggle and sensation intact. Slightly diminished peripheral pulses. Skin: warm, dry, well perfused. Results Results 24hrs Laboratory Tests Test 07/09/18 04:34 White Blood Count 16.3 #H Red Blood Count 2.41 L Hemoglobin 6.8 *L Hematocrit 21.8 L Mean Corpuscular Volume 90.5 Mean Corpuscular Hemoglobin 28.2 L Mean Corpuscular Hemoglobin Concent 31.2 L Red Cell Distribution Width 14.8 H Platelet Count 311 Mean Platelet Volume 9.0 Immature Granulocytes % 0.900 H Neutrophils % 79.6 H Lymphocytes % 12.0 L Monocytes % 6.7 Eosinophils % 0.4 Basophils % 0.4 Nucleated Red Blood Cells % 0.0 Immature Granulocytes # 0.140 H Neutrophils # 13.0 H Lymphocytes # 2.0 Monocytes # 1.1 H Eosinophils # 0.1 Basophils # 0.1 Nucleated Red Blood Cells # 0.0 Sodium Level 143 Potassium Level 5.1 Chloride Level 114 H Carbon Dioxide Level 27 Anion Gap 2 L Blood Urea Nitrogen 22 H Creatinine 1.28 H Est Glomerular Filtrat Rate mL/min 57 L Glucose Level 106 # Calcium Level 8.6 Vancomycin Level Trough 19.1 Medications Medication Current Medications IV Flush (NS 3 ml) 3 ml PER PROTOCOL IV ; Start 07/07/18 at 15:30 Oxycodone HCl (Roxicodone) 15 mg Q4H PRN PO .PAIN Last administered on 07/09/18 13:03; Admin Dose 15 MG; Start 07/07/18 at 15:30 Oxycodone HCl (Roxicodone) 10 mg Q4H PRN PO .PAIN Last administered on 07/08/18 10:13; Admin Dose 10 MG; Start 07/07/18 at 15:30 Oxycodone HCl (Roxicodone) 5 mg Q4H PRN PO .PAIN; Start 07/07/18 at 15:30 Hydromorphone HCl (Dilaudid) 1 mg Q3H PRN IV .BREAKTHROUGH PAIN Last administered on 07/09/18 09:34; Admin Dose 1 MG; Start 07/07/18 at 15:30 Acetaminophen (Tylenol Tab) 1,000 mg Q8 PO Last administered on 07/09/18 13:47; Admin Dose 1,000 MG; Start 07/07/18 at 22:00 Ondansetron HCl (Zofran Inj) 4 mg Q4H PRN IV NAUSEA/VOMITING; Start 07/08/18 at 15:30 Gabapentin (Neurontin) 300 mg QHS PO Last administered on 07/08/18 21:16; Admin Dose 300 MG; Start 07/07/18 at 21:00 Pantoprazole (Protonix Tab) 40 mg DAILY@06 PO Last administered on 07/09/18 05:29; Admin Dose 40 MG; Start 07/09/18 at 06:00 Docusate Sodium (Colace) 200 mg BID PO Last administered on 07/09/18 08:57; Admin Dose 200 MG; Start 07/08/18 at 09:00; Stop 07/11/18 at 08:59 Simethicone (Mylicon) 80 mg TID PRN PO .GAS; Start 07/07/18 at 15:30 Senna/Docusate Sodium (Senokot-S) 2 tab BID PRN PO .CONSTIPATION; Start 07/07/18 at 15:30 Magnesium Hydroxide (Milk Of Mag) 30 ml HS PRN PO .CONSTIPATION; Start 07/07/18 at 15:30 Bisacodyl (Dulcolax Supp) 10 mg DAILY PRN [place] .CONSTIPATION; Start 07/07/18 at 15:30 Sodium Biphosphate/ Sodium Phosphate (Fleet Enema) 133 ml DAILY PRN [place] .CONSTIPATION; Start 07/07/18 at 15:30 Diphenhydramine HCl (Benadryl) 25 mg Q4H PRN IV .ITCHING Last administered on 07/08/18 10:14; Admin Dose 25 MG; Start 07/07/18 at 15:30 Naloxone HCl (Narcan) 0.2 mg Q2M PRN IV .RESP RATE; Start 07/07/18 at 15:30 Bethanechol Chloride (Urecholine) 25 mg URINARY CATH D/C PRN PO UNABLE TO VOID Last administered on 07/08/18 10:02; Admin Dose 25 MG; Start 07/07/18 at 15:30 Aspirin (Halfprin) 81 mg BID PO Last administered on 07/09/18 08:57; Admin Dose 81 MG; Start 07/08/18 at 09:00 Nicotine (Nicoderm 7 Mg/ 24 Hr) 1 patch DAILY TRANSDERM Last administered on 07/09/18 08:57; Admin Dose 1 PATCH; Start 07/07/18 at 17:00 Piperacillin Sod/ Tazobactam Sod 100 ml @ 200 mls/hr Q6 IVPB Last administered on 07/09/18 12:58; Admin Dose 200 MLS/HR; Start 07/08/18 at 19:00 Vancomycin/Sodium Chloride 250 ml @ 125 mls/hr Q12H IVPB Last administered on 07/09/18at 08:58; Admin Dose 125 MLS/HR; Start 07/09/18 at 10:00 MARCELA VACA MD July 09, 2018 14:00
--- NOTE | 2018-07-09 14:26 | PN ---
Date/Time of Note Date/Time of Note DATE: 07/09/18 TIME: 14:21 Assessment/Plan Lines/Catheters IV Catheter Type (from Nrs): Peripheral IV Morrison in Place (from Nrs): No Assessment/Plan Chief Complaint/Hosp Course 63-year-old male postop day #2 status post stage I of two-stage right total knee arthroplasty revision for recurrent and chronic infection. Overall the patient is doing very well. Microbiology cultures are returning gram-negative rods with Enterobacter cloacae. Cultures are not finalized yet at this time. Plan: Continue incisional wound VAC. Will DC postop day #5 for wound check. Nonweightbearing right lower extremity Need to be locked in full extension with knee immobilizer. Hinged knee brace ordered for patient. When arise we will place with knee locked in full extension. Continue IV antibiotics. Vancomycin and Zosyn. Tomorrow will consult infectious disease Will order PICC line Continue to follow cultures DVT prophylaxis: SCDs and aspirin 81 mg twice daily Discharge planning: Will need IV antibiotics on discharge. SNF vs home with home health no earlier than postop day #5 Subjective Detailed Summary Free Text/Dictation Patient doing well No acute events overnight Pain is well controlled Exam/Review of Systems Vital Signs Vitals Vital Signs Date Temp Pulse Resp B/P (MAP) Pulse Ox O2 O2 Flow FiO2 Time Delivery Rate 07/09/18 36.4 13:47 07/09/18 95 18 106/62 96 Room Air 07:57 (77) 07/07/18 3.0 15:30 Intake and Output 07/08/18 07/08/18 07/09/18 1515:00 23:00 07:00 IntakeIntake Total 1110 ml 700 ml 200 ml OutputOutput Total 400 ml 380 ml 800 ml BalanceBalance 710 ml 320 ml -600 ml Exam Free Text/Dictation Right lower extremity: Dressing: clean, dry, and intact. Knee immobilizer in place Sensation intact to light touch in a sural, saphenous, deep peroneal, superficial peroneal, medial and lateral plantar nerve distribution. Motor is intact, patient able to dorsiflex and plantarflex ankle and extend and flex great toe. Dorsalis Pedis pulse +2, Brisk capillary refill. Compartments are soft. Calves non-tender to palpation bilaterally. Results Result Diagram: 07/09/18 0434 07/09/18 0434 EZE BYERS MD July 09, 2018 14:26
[2018-07-09 15:09] VITALS: BP 103/63; PULSE 88; RESP 18
[2018-07-09] MEDS ORDERED: SOD CHLORIDE 0.9% 250 ML IV* ONE (17:40)
[2018-07-09 19:54] VITALS: BP 142/48; PULSE 82; RESP 18
[2018-07-09] MEDS: GABAPENTIN 300 MG CAP PO SCH (20:29)
[2018-07-10 00:34] VITALS: BP 109/55; PULSE 74; RESP 18
[2018-07-10] MEDS: oxyCODONE 5 MG TAB PO PRN ×4 (01:35→20:40)
[2018-07-10] MEDS: PIPER-TAZO 3.375 GM IV (PMX) 100 ML IVPB SCH ×4 (02:26→18:52)
[2018-07-10 04:00] VITALS: BP 114/56; PULSE 82; RESP 18
[2018-07-10] MEDS: PANTOPRAZOLE (EC) 40 MG TAB PO SCH (06:39)
[2018-07-10] MEDS: ACETAMINOPHEN 500 MG TAB PO SCH ×3 (06:39→22:00)
[2018-07-10 08:13] VITALS: BP 100/51; PULSE 65; RESP 18
[2018-07-10] MEDS: DOCUSATE SODIUM 100 MG CAP PO SCH ×2 (08:26→20:39)
[2018-07-10] MEDS: ASPIRIN (EC) 81 MG TAB PO SCH ×2 (08:26→20:39)
[2018-07-10] MEDS: NICOTINE (7 MG/24 HR) PATCH TRANSDERM SCH (08:27)
[2018-07-10] MEDS: VANCOMYCIN 750 MG (PMX) 250 ML IVPB SCH (10:18)
[2018-07-10] MEDS ORDERED: LIDOCAINE 1% (MPF) 5 ML VIAL SC ONE (10:30)
--- NOTE | 2018-07-10 11:56 | CONS ---
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 Aragon from [facility] who was his ID doctor prior to his recent move to [place] will order picc line placement (already placed by Dr. Salazar) anticipate 6 weeks of IV therapy check ESR in a.m. Consultation Date/Type/Reason Admit Date/Time July 07, 2018 at 05:46 Date of Consultation: July 10, 2018 Type of Consult ID Date/Time of Note DATE: 07/10/18 TIME: 11:44 Hx of Present Illness pt admitted for surgical explantation of hardware of R knee components Pt has recurrent infection of R knee he denies F, C No N, V, D no SOB pain to R knee is the main issue which is better since the surgery Past Medical History Medical History: no pertinent history Home Meds No Active Prescriptions or Reported Meds Medications Current Medications IV Flush (NS 3 ml) 3 ml PER PROTOCOL IV ; Start 07/07/18 at 15:30 Oxycodone HCl (Roxicodone) 15 mg Q4H PRN PO .PAIN Last administered on 07/10/18at 06:42; Admin Dose 15 MG; Start 07/07/18 at 15:30 Oxycodone HCl (Roxicodone) 10 mg Q4H PRN PO .PAIN Last administered on 07/08/18at 10:13; Admin Dose 10 MG; Start 07/07/18 at 15:30 Oxycodone HCl (Roxicodone) 5 mg Q4H PRN PO .PAIN; Start 07/07/18 at 15:30 Hydromorphone HCl (Dilaudid) 1 mg Q3H PRN IV .BREAKTHROUGH PAIN Last administered on 07/09/18at 09:34; Admin Dose 1 MG; Start 07/07/18 at 15:30 Acetaminophen (Tylenol Tab) 1,000 mg Q8 PO Last administered on 07/10/18at 06:39; Admin Dose 1,000 MG; Start 07/07/18 at 22:00 Ondansetron HCl (Zofran Inj) 4 mg Q4H PRN IV NAUSEA/VOMITING; Start 07/08/18 at 15:30 Gabapentin (Neurontin) 300 mg QHS PO Last administered on 07/09/18 20:29; Admin Dose 300 MG; Start 07/07/18 at 21:00 Pantoprazole (Protonix Tab) 40 mg DAILY@06 PO Last administered on 07/10/18 06:39; Admin Dose 40 MG; Start 07/09/18 at 06:00 Docusate Sodium (Colace) 200 mg BID PO Last administered on 07/10/18 08:26; Admin Dose 200 MG; Start 07/08/18 at 09:00; Stop 07/11/18 at 08:59 Simethicone (Mylicon) 80 mg TID PRN PO .GAS; Start 07/07/18 at 15:30 Senna/Docusate Sodium (Senokot-S) 2 tab BID PRN PO .CONSTIPATION; Start 07/07/18 at 15:30 Magnesium Hydroxide (Milk Of Mag) 30 ml HS PRN PO .CONSTIPATION; Start 07/07/18 at 15:30 Bisacodyl (Dulcolax Supp) 10 mg DAILY PRN [place] .CONSTIPATION; Start 07/07/18 at 15:30 Sodium Biphosphate/ Sodium Phosphate (Fleet Enema) 133 ml DAILY PRN [place] .CONSTIPATION; Start 07/07/18 at 15:30 Diphenhydramine HCl (Benadryl) 25 mg Q4H PRN IV .ITCHING Last administered on 07/08/18 10:14; Admin Dose 25 MG; Start 07/07/18 at 15:30 Naloxone HCl (Narcan) 0.2 mg Q2M PRN IV .RESP RATE; Start 07/07/18 at 15:30 Bethanechol Chloride (Urecholine) 25 mg URINARY CATH D/C PRN PO UNABLE TO VOID Last administered on 07/08/18 10:02; Admin Dose 25 MG; Start 07/07/18 at 15:30 Aspirin (Halfprin) 81 mg BID PO Last administered on 07/10/18 08:26; Admin Dose 81 MG; Start 07/08/18 at 09:00 Nicotine (Nicoderm 7 Mg/ 24 Hr) 1 patch DAILY TRANSDERM Last administered on 07/10/18 08:27; Admin Dose 1 PATCH; Start 07/07/18 at 17:00 Piperacillin Sod/ Tazobactam Sod 100 ml @ 200 mls/hr Q6 IVPB Last administered on 07/10/18at 06:39; Admin Dose 200 MLS/HR; Start 07/08/18 at 19:00 Vancomycin/Sodium Chloride 250 ml @ 125 mls/hr Q12H IVPB Last administered on 07/10/18at 10:18; Admin Dose 125 MLS/HR; Start 07/09/18 at 10:00 Allergies: Coded Allergies: No Known Allergy (Unverified , 06/20/18) Social History Alcohol Use: occasionally Smoking Status: Current every day smoker (Uses vaporized nicotine. ) Drug Use: marijuana (as needed for knee pain) Exam/Review of Systems Exam Vitals Vital Signs Date Temp Pulse Resp B/P (MAP) Pulse Ox O2 O2 Flow FiO2 Time Delivery Rate 07/10/18 98.3 65 18 100/51 99 Room Air 08:13 (67) 07/07/18 3.0 15:30 Intake and Output 07/09/18 07/09/18 07/10/18 1515:00 23:00 07:00 IntakeIntake Total 1190 ml 710 ml 550 ml OutputOutput Total 500 ml 90 ml 1080 ml BalanceBalance 690 ml 620 ml -530 ml Constitutional: alert, oriented Eyes: nl sclera ENMT: mucosa pink and moist Respiratory: clear to auscultation Cardiovascular: regular rate and rhythm Gastrointestinal: soft, non-tender Extremities: other (R knee is bandaged) Results Result Diagram: 07/10/18 0436 07/10/18 0436 Results 24hrs Laboratory Tests Test 07/10/18 04:36 07/10/18 09:20 White Blood Count 11.3 #H Red Blood Count 2.94 #L Hemoglobin 8.1 L Hematocrit 26.2 #L Mean Corpuscular Volume 89.1 Mean Corpuscular Hemoglobin 27.6 L Mean Corpuscular Hemoglobin Concent 30.9 L Red Cell Distribution Width 15.0 H Platelet Count 320 Mean Platelet Volume 8.7 Immature Granulocytes % 0.900 H Neutrophils % 63.1 Lymphocytes % 24.6 Monocytes % 8.4 Eosinophils % 2.4 Basophils % 0.6 Nucleated Red Blood Cells % 0.0 Immature Granulocytes # 0.100 H Neutrophils # 7.1 Lymphocytes # 2.8 Monocytes # 1.0 H Eosinophils # 0.3 Basophils # 0.1 Nucleated Red Blood Cells # 0.0 Sodium Level 143 Potassium Level 4.4 Chloride Level 113 H Carbon Dioxide Level 24 Anion Gap 6 Blood Urea Nitrogen 23 H Creatinine 1.35 H Est Glomerular Filtrat Rate mL/min 54 L Glucose Level 97 Calcium Level 8.7 Lab Scanned Report REFERENCE LAB Medications Medication Current Medications IV Flush (NS 3 ml) 3 ml PER PROTOCOL IV ; Start 07/07/18 at 15:30 Oxycodone HCl (Roxicodone) 15 mg Q4H PRN PO .PAIN Last administered on 07/10/18 06:42; Admin Dose 15 MG; Start 07/07/18 at 15:30 Oxycodone HCl (Roxicodone) 10 mg Q4H PRN PO .PAIN Last administered on 07/08/18 10:13; Admin Dose 10 MG; Start 07/07/18 at 15:30 Oxycodone HCl (Roxicodone) 5 mg Q4H PRN PO .PAIN; Start 07/07/18 at 15:30 Hydromorphone HCl (Dilaudid) 1 mg Q3H PRN IV .BREAKTHROUGH PAIN Last administered on 07/09/18 09:34; Admin Dose 1 MG; Start 07/07/18 at 15:30 Acetaminophen (Tylenol Tab) 1,000 mg Q8 PO Last administered on 07/10/18 06:39; Admin Dose 1,000 MG; Start 07/07/18 at 22:00 Ondansetron HCl (Zofran Inj) 4 mg Q4H PRN IV NAUSEA/VOMITING; Start 07/08/18 at 15:30 Gabapentin (Neurontin) 300 mg QHS PO Last administered on 07/09/18 20:29; Admin Dose 300 MG; Start 07/07/18 at 21:00 Pantoprazole (Protonix Tab) 40 mg DAILY@06 PO Last administered on 07/10/18 06:39; Admin Dose 40 MG; Start 07/09/18 at 06:00 Docusate Sodium (Colace) 200 mg BID PO Last administered on 07/10/18 08:26; Admin Dose 200 MG; Start 07/08/18 at 09:00; Stop 07/11/18 at 08:59 Simethicone (Mylicon) 80 mg TID PRN PO .GAS; Start 07/07/18 at 15:30 Senna/Docusate Sodium (Senokot-S) 2 tab BID PRN PO .CONSTIPATION; Start 07/07/18 at 15:30 Magnesium Hydroxide (Milk Of Mag) 30 ml HS PRN PO .CONSTIPATION; Start 07/07/18 at 15:30 Bisacodyl (Dulcolax Supp) 10 mg DAILY PRN [place] .CONSTIPATION; Start 07/07/18 at 15:30 Sodium Biphosphate/ Sodium Phosphate (Fleet Enema) 133 ml DAILY PRN [place] .CONSTIPATION; Start 07/07/18 at 15:30 Diphenhydramine HCl (Benadryl) 25 mg Q4H PRN IV .ITCHING Last administered on 07/08/18 10:14; Admin Dose 25 MG; Start 07/07/18 at 15:30 Naloxone HCl (Narcan) 0.2 mg Q2M PRN IV .RESP RATE; Start 07/07/18 at 15:30 Bethanechol Chloride (Urecholine) 25 mg URINARY CATH D/C PRN PO UNABLE TO VOID Last administered on 07/08/18 10:02; Admin Dose 25 MG; Start 07/07/18 at 15:30 Aspirin (Halfprin) 81 mg BID PO Last administered on 07/10/18 08:26; Admin Dose 81 MG; Start 07/08/18 at 09:00 Nicotine (Nicoderm 7 Mg/ 24 Hr) 1 patch DAILY TRANSDERM Last administered on 07/10/18 08:27; Admin Dose 1 PATCH; Start 07/07/18 at 17:00 Piperacillin Sod/ Tazobactam Sod 100 ml @ 200 mls/hr Q6 IVPB Last administered on 07/10/18 06:39; Admin Dose 200 MLS/HR; Start 07/08/18 at 19:00 Vancomycin/Sodium Chloride 250 ml @ 125 mls/hr Q12H IVPB Last administered on 07/10/18 10:18; Admin Dose 125 MLS/HR; Start 07/09/18 at 10:00 TATE LORENZANA MD July 10, 2018 11:55
[2018-07-10 14:18] VITALS: BP 123/67; PULSE 73; RESP 18
--- NOTE | 2018-07-10 14:33 | PN ---
Date/Time of Note Date/Time of Note DATE: 07/10/18 TIME: 14:27 Assessment/Plan VTE Prophylaxis Risk score (from Nsg)>0 risk: 6 SCD applied (from Nsg): Yes Pharmacological prophylaxis: other Lines/Catheters IV Catheter Type (from Nrsg): Peripheral IV Urinary Cath still in place: No Assessment/Plan Hospital Course S: Patient had no acute events overnight, seen by ID team and with her team this morning. O: VS - see below PE: Gen: Well developed man in no acute distress. Eyes: PERRL, no icterus HEENT: Clear oropharynx, moist mucous membranes Neck: Supple, nontender, no lymphadenopathy Card: Regular rate and rhythm, no murmurs Pulm: Clear to auscultation bilaterally Abd: Soft, nontender, nondistended. Ext: L knee scar well healed. R knee bandaged with sanguinous drainage from surg ical drain. 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 23 x 8 cm Explantation of right total knee arthroplasty and implementation of antibiotic spacer Application of negative pressure dressing Assessment/Plan: 63 yo man history of infected R knee prosthesis presents after first stage of elective total knee revision. #R knee revision - POD # 3. Fluid culture results positive for Enterobacter growth. - continue Percocet for post-op pain. - continue with Zosyn IV abx per ID rec's - will need 6 weeks of IV antibiotics total, PICC ordered - PT, weight bearing per orthopedics. #Nicotine use- Patient reports quitting cigarettes but is now vaping - nicotine patch. Internal medicine will continue to follow Result Diagram: 07/10/18 0436 07/10/18 0436 Results 24hrs Laboratory Tests Test 07/10/18 04:36 07/10/18 09:20 White Blood Count 11.3 #H Red Blood Count 2.94 #L Hemoglobin 8.1 L Hematocrit 26.2 #L Mean Corpuscular Volume 89.1 Mean Corpuscular Hemoglobin 27.6 L Mean Corpuscular Hemoglobin Concent 30.9 L Red Cell Distribution Width 15.0 H Platelet Count 320 Mean Platelet Volume 8.7 Immature Granulocytes % 0.900 H Neutrophils % 63.1 Lymphocytes % 24.6 Monocytes % 8.4 Eosinophils % 2.4 Basophils % 0.6 Nucleated Red Blood Cells % 0.0 Immature Granulocytes # 0.100 H Neutrophils # 7.1 Lymphocytes # 2.8 Monocytes # 1.0 H Eosinophils # 0.3 Basophils # 0.1 Nucleated Red Blood Cells # 0.0 Sodium Level 143 Potassium Level 4.4 Chloride Level 113 H Carbon Dioxide Level 24 Anion Gap 6 Blood Urea Nitrogen 23 H Creatinine 1.35 H Est Glomerular Filtrat Rate mL/min 54 L Glucose Level 97 Calcium Level 8.7 Lab Scanned Report REFERENCE LAB Exam/Review of Systems Exam Vitals Vital Signs Date Temp Pulse Resp B/P (MAP) Pulse Ox O2 O2 Flow FiO2 Time Delivery Rate 07/10/18 98.6 73 18 123/67 98 Room Air 14:18 (85) 07/07/18 3.0 15:30 Intake and Output 07/09/18 07/09/18 07/10/18 1515:00 23:00 07:00 IntakeIntake Total 1190 ml 710 ml 550 ml OutputOutput Total 500 ml 90 ml 1080 ml BalanceBalance 690 ml 620 ml -530 ml Results Results 24hrs Laboratory Tests Test 07/10/18 04:36 07/10/18 09:20 White Blood Count 11.3 #H Red Blood Count 2.94 #L Hemoglobin 8.1 L Hematocrit 26.2 #L Mean Corpuscular Volume 89.1 Mean Corpuscular Hemoglobin 27.6 L Mean Corpuscular Hemoglobin Concent 30.9 L Red Cell Distribution Width 15.0 H Platelet Count 320 Mean Platelet Volume 8.7 Immature Granulocytes % 0.900 H Neutrophils % 63.1 Lymphocytes % 24.6 Monocytes % 8.4 Eosinophils % 2.4 Basophils % 0.6 Nucleated Red Blood Cells % 0.0 Immature Granulocytes # 0.100 H Neutrophils # 7.1 Lymphocytes # 2.8 Monocytes # 1.0 H Eosinophils # 0.3 Basophils # 0.1 Nucleated Red Blood Cells # 0.0 Sodium Level 143 Potassium Level 4.4 Chloride Level 113 H Carbon Dioxide Level 24 Anion Gap 6 Blood Urea Nitrogen 23 H Creatinine 1.35 H Est Glomerular Filtrat Rate mL/min 54 L Glucose Level 97 Calcium Level 8.7 Lab Scanned Report REFERENCE LAB Medications Medication Current Medications IV Flush (NS 3 ml) 3 ml PER PROTOCOL IV ; Start 07/07/18 at 15:30 Oxycodone HCl (Roxicodone) 15 mg Q4H PRN PO .PAIN Last administered on 07/10/18 06:42; Admin Dose 15 MG; Start 07/07/18 at 15:30 Oxycodone HCl (Roxicodone) 10 mg Q4H PRN PO .PAIN Last administered on 07/08/18 10:13; Admin Dose 10 MG; Start 07/07/18 at 15:30 Oxycodone HCl (Roxicodone) 5 mg Q4H PRN PO .PAIN; Start 07/07/18 at 15:30 Hydromorphone HCl (Dilaudid) 1 mg Q3H PRN IV .BREAKTHROUGH PAIN Last administered on 07/09/18 09:34; Admin Dose 1 MG; Start 07/07/18 at 15:30 Acetaminophen (Tylenol Tab) 1,000 mg Q8 PO Last administered on 07/10/18 06:39; Admin Dose 1,000 MG; Start 07/07/18 at 22:00 Ondansetron HCl (Zofran Inj) 4 mg Q4H PRN IV NAUSEA/VOMITING; Start 07/08/18 at 15:30 Gabapentin (Neurontin) 300 mg QHS PO Last administered on 07/09/18 20:29; Admin Dose 300 MG; Start 07/07/18 at 21:00 Pantoprazole (Protonix Tab) 40 mg DAILY@06 PO Last administered on 07/10/18 06:39; Admin Dose 40 MG; Start 07/09/18 at 06:00 Docusate Sodium (Colace) 200 mg BID PO Last administered on 07/10/18 08:26; Admin Dose 200 MG; Start 07/08/18 at 09:00; Stop 07/11/18 at 08:59 Simethicone (Mylicon) 80 mg TID PRN PO .GAS; Start 07/07/18 at 15:30 Senna/Docusate Sodium (Senokot-S) 2 tab BID PRN PO .CONSTIPATION; Start 07/07/18 at 15:30 Magnesium Hydroxide (Milk Of Mag) 30 ml HS PRN PO .CONSTIPATION; Start 07/07/18 at 15:30 Bisacodyl (Dulcolax Supp) 10 mg DAILY PRN [place] .CONSTIPATION; Start 07/07/18 at 15:30 Sodium Biphosphate/ Sodium Phosphate (Fleet Enema) 133 ml DAILY PRN [place] . CONSTIPATION; Start 07/07/18 at 15:30 Diphenhydramine HCl (Benadryl) 25 mg Q4H PRN IV .ITCHING Last administered on 07/08/18 10:14; Admin Dose 25 MG; Start 07/07/18 at 15:30 Naloxone HCl (Narcan) 0.2 mg Q2M PRN IV .RESP RATE; Start 07/07/18 at 15:30 Bethanechol Chloride (Urecholine) 25 mg URINARY CATH D/C PRN PO UNABLE TO VOID Last administered on 07/08/18 10:02; Admin Dose 25 MG; Start 07/07/18 at 15:30 Aspirin (Halfprin) 81 mg BID PO Last administered on 07/10/18 08:26; Admin Dose 81 MG; Start 07/08/18 at 09:00 Nicotine (Nicoderm 7 Mg/ 24 Hr) 1 patch DAILY TRANSDERM Last administered on 07/10/18 08:27; Admin Dose 1 PATCH; Start 07/07/18 at 17:00 Piperacillin Sod/ Tazobactam Sod 100 ml @ 200 mls/hr Q6 IVPB Last administered on 07/10/18 12:50; Admin Dose 200 MLS/HR; Start 07/08/18 at 19:00 FE ELIZABETH July 10, 2018 14:33
[2018-07-10] MEDS: SOD CHLORIDE 0.9% 1,000 ML IV SCH (18:53)
[2018-07-10 20:30] VITALS: BP 145/76; PULSE 72; RESP 19
[2018-07-10] MEDS: GABAPENTIN 300 MG CAP PO SCH (20:39)
[2018-07-11] MEDS: oxyCODONE 5 MG TAB PO PRN ×5 (00:38→18:34)
[2018-07-11] MEDS: PIPER-TAZO 3.375 GM IV (PMX) 100 ML IVPB SCH ×5 (00:40→23:47)
[2018-07-11 02:20] VITALS: BP 140/62; PULSE 74; RESP 17
[2018-07-11] MEDS: PANTOPRAZOLE (EC) 40 MG TAB PO SCH (04:45)
[2018-07-11] MEDS: ACETAMINOPHEN 500 MG TAB PO SCH ×3 (06:00→21:05)
[2018-07-11] MEDS: SOD CHLORIDE 0.9% 1,000 ML IV SCH ×2 (06:50→09:54)
--- NOTE | 2018-07-11 06:52 | CONS ---
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 Aragon from [facility] who was his ID doctor prior to his recent move to [place] will order picc line placement (already placed by Dr. Salazar) anticipate 6 weeks of IV therapy check ESR in a.m. 07/11 - PICC line not placed yet will continue with IV zosyn thru 08/19 case management referral made for home IV zosyn via a CADD pump to follow weekly cbc, bmp, ESR while on zosyn Consultation Date/Type/Reason Admit Date/Time July 07, 2018 at 05:46 Initial Consult Date 07/10/18 Type of Consult ID Requesting Provider: EZE SALAZAR MD Date/Time of Note DATE: 07/11/18 TIME: 06:49 24 HR Interval Summary Free Text/Dictation doing well no N, V pt had a BM yesterday no SOB no new problems with R knee Exam/Review of Systems Exam Vitals Vital Signs Date Temp Pulse Resp B/P (MAP) Pulse Ox O2 O2 Flow FiO2 Time Delivery Rate 07/11/18 98.1 74 17 140/62 94 02:20 (88) 07/10/18 Room Air 14:18 07/07/18 3.0 15:30 Intake and Output 07/10/18 07/10/18 07/11/18 1515:00 23:00 07:00 IntakeIntake Total 450 ml 1070 ml 970 ml OutputOutput Total 800 ml 600 ml 1140 ml BalanceBalance -350 ml 470 ml -170 ml Constitutional: alert, oriented Extremities: other (R knee is bandaged) Results Result Diagram: 07/11/18 0441 07/11/18 0441 Results 24hrs Laboratory Tests Test 07/10/18 09:20 07/11/18 04:41 Lab Scanned Report REFERENCE LAB White Blood Count 10.4 Red Blood Count 3.10 L Hemoglobin 8.6 L Hematocrit 27.1 L Mean Corpuscular Volume 87.4 Mean Corpuscular Hemoglobin 27.7 L Mean Corpuscular Hemoglobin Concent 31.7 L Red Cell Distribution Width 15.5 H Platelet Count 348 Mean Platelet Volume 8.8 Immature Granulocytes % 1.500 H Neutrophils % 64.7 Lymphocytes % 21.0 Monocytes % 8.6 Eosinophils % 3.7 Basophils % 0.5 Nucleated Red Blood Cells % 0.0 Immature Granulocytes # 0.160 H Neutrophils # 6.7 Lymphocytes # 2.2 Monocytes # 0.9 Eosinophils # 0.4 Basophils # 0.1 Nucleated Red Blood Cells # 0.0 Sodium Level 140 Potassium Level 4.6 Chloride Level 106 Carbon Dioxide Level 29 Anion Gap 5 Blood Urea Nitrogen 21 H Creatinine 1.23 Est Glomerular Filtrat Rate mL/min 60 Glucose Level 97 Calcium Level 8.8 Medications Medication Current Medications IV Flush (NS 3 ml) 3 ml PER PROTOCOL IV ; Start 07/07/18 at 15:30 Oxycodone HCl (Roxicodone) 15 mg Q4H PRN PO .PAIN Last administered on 07/11/18 04:59; Admin Dose 15 MG; Start 07/07/18 at 15:30 Oxycodone HCl (Roxicodone) 10 mg Q4H PRN PO .PAIN Last administered on 07/08/18 10:13; Admin Dose 10 MG; Start 07/07/18 at 15:30 Oxycodone HCl (Roxicodone) 5 mg Q4H PRN PO .PAIN; Start 07/07/18 at 15:30 Hydromorphone HCl (Dilaudid) 1 mg Q3H PRN IV .BREAKTHROUGH PAIN Last administered on 07/09/18at 09:34; Admin Dose 1 MG; Start 07/07/18 at 15:30 Acetaminophen (Tylenol Tab) 1,000 mg Q8 PO Last administered on 07/10/18 06:39; Admin Dose 1,000 MG; Start 07/07/18 at 22:00 Ondansetron HCl (Zofran Inj) 4 mg Q4H PRN IV NAUSEA/VOMITING; Start 07/08/18 at 15:30 Gabapentin (Neurontin) 300 mg QHS PO Last administered on 07/10/18at 20:39; Admin Dose 300 MG; Start 07/07/18 at 21:00 Pantoprazole (Protonix Tab) 40 mg DAILY@06 PO Last administered on 07/11/18 04:45; Admin Dose 40 MG; Start 07/09/18 at 06:00 Docusate Sodium (Colace) 200 mg BID PO Last administered on 07/10/18 20:39; Admin Dose 200 MG; Start 07/08/18 at 09:00; Stop 07/11/18 at 08:59 Simethicone (Mylicon) 80 mg TID PRN PO .GAS; Start 07/07/18 at 15:30 Senna/Docusate Sodium (Senokot-S) 2 tab BID PRN PO .CONSTIPATION; Start 07/07/18 at 15:30 Magnesium Hydroxide (Milk Of Mag) 30 ml HS PRN PO .CONSTIPATION; Start 07/07/18 at 15:30 Bisacodyl (Dulcolax Supp) 10 mg DAILY PRN [place] .CONSTIPATION; Start 07/07/18 at 15:30 Sodium Biphosphate/ Sodium Phosphate (Fleet Enema) 133 ml DAILY PRN [place] .CONSTIPATION; Start 07/07/18 at 15:30 Diphenhydramine HCl (Benadryl) 25 mg Q4H PRN IV .ITCHING Last administered on 07/08/18 10:14; Admin Dose 25 MG; Start 07/07/18 at 15:30 Naloxone HCl (Narcan) 0.2 mg Q2M PRN IV .RESP RATE; Start 07/07/18 at 15:30 Bethanechol Chloride (Urecholine) 25 mg URINARY CATH D/C PRN PO UNABLE TO VOID Last administered on 07/08/18 10:02; Admin Dose 25 MG; Start 07/07/18 at 15:30 Aspirin (Halfprin) 81 mg BID PO Last administered on 07/10/18 20:39; Admin Dose 81 MG; Start 07/08/18 at 09:00 Nicotine (Nicoderm 7 Mg/ 24 Hr) 1 patch DAILY TRANSDERM Last administered on 07/10/18 08:27; Admin Dose 1 PATCH; Start 07/07/18 at 17:00 Piperacillin Sod/ Tazobactam Sod 100 ml @ 200 mls/hr Q6 IVPB Last administered on 07/11/18 06:05; Admin Dose 200 MLS/HR; Start 07/08/18 at 19:00 Sodium Chloride 1,000 ml @ 75 mls/hr [id number] IV Last administered on 07/10/18 18:53; Admin Dose 75 MLS/HR; Start 07/10/18 at 17:30 TATE LORENZANA MD July 11, 2018 06:52
[2018-07-11 07:54] VITALS: BP 139/60; PULSE 78; RESP 19
[2018-07-11] MEDS: NICOTINE (7 MG/24 HR) PATCH TRANSDERM SCH (09:42)
[2018-07-11] MEDS: ASPIRIN (EC) 81 MG TAB PO SCH ×2 (09:42→21:05)
--- NOTE | 2018-07-11 12:13 | PN ---
Date/Time of Note Date/Time of Note DATE: 07/11/18 TIME: 12:10 Assessment/Plan VTE Prophylaxis Risk score (from Nsg)>0 risk: 8 SCD applied (from Nsg): Yes Pharmacological prophylaxis: other Lines/Catheters IV Catheter Type (from Nrsg): Peripheral IV Urinary Cath still in place: No Assessment/Plan Hospital Course S: Patient had no acute events overnight, still waiting for PICC line placement, likely to be done today. Seen by ID team this morning. O: VS - see below PE: Gen: Well developed man in no acute distress. Eyes: PERRL, no icterus HEENT: Clear oropharynx, moist mucous membranes Neck: Supple, nontender, no lymphadenopathy Card: Regular rate and rhythm, no murmurs Pulm: Clear to auscultation bilaterally Abd: Soft, nontender, nondistended. Ext: L knee scar well healed. 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 23 x 8 cm Explantation of right total knee arthroplasty and implementation of antibiotic spacer Application of negative pressure dressing Assessment/Plan: 63 yo man history of infected R knee prosthesis presents after first stage of elective total knee revision. #R knee revision - POD # 4. Fluid culture results positive for Enterobacter growth. - continue Percocet for post-op pain. - continue with Zosyn IV abx per ID rec's - will need 6 weeks of IV antibiotics total (until August 19), as well yesterday PICC ordered -likely to be placed today. - PT, weight bearing per orthopedics. #Nicotine use- Patient reports quitting cigarettes but apparently is now vaping - nicotine patch. Internal medicine will continue to follow Result Diagram: 07/11/1844007/11/181 Results 24hrs Laboratory Tests Test 07/11/18 04:41 07/11/18 08:08 White Blood Count 10.4 Red Blood Count 3.10 L Hemoglobin 8.6 L Hematocrit 27.1 L Mean Corpuscular Volume 87.4 Mean Corpuscular Hemoglobin 27.7 L Mean Corpuscular Hemoglobin Concent 31.7 L Red Cell Distribution Width 15.5 H Platelet Count 348 Mean Platelet Volume 8.8 Immature Granulocytes % 1.500 H Neutrophils % 64.7 Lymphocytes % 21.0 Monocytes % 8.6 Eosinophils % 3.7 Basophils % 0.5 Nucleated Red Blood Cells % 0.0 Immature Granulocytes # 0.160 H Neutrophils # 6.7 Lymphocytes # 2.2 Monocytes # 0.9 Eosinophils # 0.4 Basophils # 0.1 Nucleated Red Blood Cells # 0.0 Erythrocyte Sedimentation Rate 32 H Sodium Level 140 Potassium Level 4.6 Chloride Level 106 Carbon Dioxide Level 29 Anion Gap 5 Blood Urea Nitrogen 21 H Creatinine 1.23 Est Glomerular Filtrat Rate mL/min 60 Glucose Level 97 Calcium Level 8.8 Lab Scanned Report BLOOD TRANSFUSION Exam/Review of Systems Exam Vitals Vital Signs Date Temp Pulse Resp B/P (MAP) Pulse Ox O2 O2 Flow FiO2 Time Delivery Rate 07/11/18 98.2 78 19 139/60 92 07:54 (86) 07/10/18 Room Air 14:18 07/07/18 3.0 15:30 Intake and Output 07/10/18 07/10/18 07/11/18 1515:00 23:00 07:00 IntakeIntake Total 450 ml 1070 ml 1070 ml OutputOutput Total 800 ml 600 ml 1140 ml BalanceBalance -350 ml 470 ml -70 ml Results Results 24hrs Laboratory Tests Test 07/11/18 04:41 07/11/18 08:08 White Blood Count 10.4 Red Blood Count 3.10 L Hemoglobin 8.6 L Hematocrit 27.1 L Mean Corpuscular Volume 87.4 Mean Corpuscular Hemoglobin 27.7 L Mean Corpuscular Hemoglobin Concent 31.7 L Red Cell Distribution Width 15.5 H Platelet Count 348 Mean Platelet Volume 8.8 Immature Granulocytes % 1.500 H Neutrophils % 64.7 Lymphocytes % 21.0 Monocytes % 8.6 Eosinophils % 3.7 Basophils % 0.5 Nucleated Red Blood Cells % 0.0 Immature Granulocytes # 0.160 H Neutrophils # 6.7 Lymphocytes # 2.2 Monocytes # 0.9 Eosinophils # 0.4 Basophils # 0.1 Nucleated Red Blood Cells # 0.0 Erythrocyte Sedimentation Rate 32 H Sodium Level 140 Potassium Level 4.6 Chloride Level 106 Carbon Dioxide Level 29 Anion Gap 5 Blood Urea Nitrogen 21 H Creatinine 1.23 Est Glomerular Filtrat Rate mL/min 60 Glucose Level 97 Calcium Level 8.8 Lab Scanned Report BLOOD TRANSFUSION Medications Medication Current Medications IV Flush (NS 3 ml) 3 ml PER PROTOCOL IV ; Start 07/07/18 at 15:30 Oxycodone HCl (Roxicodone) 15 mg Q4H PRN PO .PAIN Last administered on 07/11/18 04:59; Admin Dose 15 MG; Start 07/07/18 at 15:30 Oxycodone HCl (Roxicodone) 10 mg Q4H PRN PO .PAIN Last administered on 07/08/18at 10:13; Admin Dose 10 MG; Start 07/07/18 at 15:30 Oxycodone HCl (Roxicodone) 5 mg Q4H PRN PO .PAIN; Start 07/07/18 at 15:30 Hydromorphone HCl (Dilaudid) 1 mg Q3H PRN IV .BREAKTHROUGH PAIN Last administered on 07/09/18at 09:34; Admin Dose 1 MG; Start 07/07/18 at 15:30 Acetaminophen (Tylenol Tab) 1,000 mg Q8 PO Last administered on 07/10/18 06:39; Admin Dose 1,000 MG; Start 07/07/18 at 22:00 Ondansetron HCl (Zofran Inj) 4 mg Q4H PRN IV NAUSEA/VOMITING; Start 07/08/18 at 15:30 Gabapentin (Neurontin) 300 mg QHS PO Last administered on 07/10/18at 20:39; Admin Dose 300 MG; Start 07/07/18 at 21:00 Pantoprazole (Protonix Tab) 40 mg DAILY@06 PO Last administered on 07/11/18at 04:45; Admin Dose 40 MG; Start 07/09/18 at 06:00 Simethicone (Mylicon) 80 mg TID PRN PO .GAS; Start 07/07/18 at 15:30 Senna/Docusate Sodium (Senokot-S) 2 tab BID PRN PO .CONSTIPATION; Start 07/07/18 at 15:30 Magnesium Hydroxide (Milk Of Mag) 30 ml HS PRN PO .CONSTIPATION; Start 07/07/18 at 15:30 Bisacodyl (Dulcolax Supp) 10 mg DAILY PRN [place] .CONSTIPATION; Start 07/07/18 at 15:30 Sodium Biphosphate/ Sodium Phosphate (Fleet Enema) 133 ml DAILY PRN NV .CONSTIPATION; Start 07/07/18 at 15:30 Diphenhydramine HCl (Benadryl) 25 mg Q4H PRN IV .ITCHING Last administered on 07/08/18 10:14; Admin Dose 25 MG; Start 07/07/18 at 15:30 Naloxone HCl (Narcan) 0.2 mg Q2M PRN IV .RESP RATE; Start 07/07/18 at 15:30 Bethanechol Chloride (Urecholine) 25 mg URINARY CATH D/C PRN PO UNABLE TO VOID Last administered on 07/08/18 10:02; Admin Dose 25 MG; Start 07/07/18 at 15:30 Aspirin (Halfprin) 81 mg BID PO Last administered on 07/11/18 09:42; Admin Dose 81 MG; Start 07/08/18 at 09:00 Nicotine (Nicoderm 7 Mg/ 24 Hr) 1 patch DAILY TRANSDERM Last administered on 07/11/18 09:42; Admin Dose 1 PATCH; Start 07/07/18 at 17:00 Piperacillin Sod/ Tazobactam Sod 100 ml @ 200 mls/hr Q6 IVPB Last administered on 07/11/18 06:05; Admin Dose 200 MLS/HR; Start 07/08/18 at 19:00 Sodium Chloride 1,000 ml @ 75 mls/hr [id number] IV Last administered on 07/11/18 09:54; Admin Dose 75 MLS/HR; Start 07/10/18 at 17:30 FE ELIZABETH July 11, 2018 12:13
[2018-07-11 13:43] VITALS: BP 142/70; PULSE 71; RESP 18
--- NOTE | 2018-07-11 18:27 | PN ---
Date/Time of Note Date/Time of Note DATE: 07/11/18 TIME: 18:26 Assessment/Plan Lines/Catheters IV Catheter Type (from Nrs): PICC Line Morrison in Place (from Nrs): No Assessment/Plan Chief Complaint/Hosp Course 63-year-old male postop day #4 status post stage I of two-stage right total knee arthroplasty revision for recurrent and chronic infection. Overall the patient is doing very well. Microbiology cultures are returning gram-negative rods with Enterobacter cloacae. Cultures are not finalized yet at this time. Plan: Continue incisional wound VAC. Will DC postop day #5 for wound check. Nonweightbearing right lower extremity Need to be locked in full extension with knee immobilizer. Hinged knee brace ordered for patient. When arise we will place with knee locked in full extension. Continue IV antibiotics. Vancomycin and Zosyn. Dr. Lockett from infectious disease recommending continuing Zosyn for 6 weeks. Continue to follow cultures DVT prophylaxis: SCDs and aspirin 81 mg twice daily Discharge planning: Will need IV antibiotics on discharge. SNF vs home with home health no earlier than postop day #5 Subjective 24 Hr Interval Summary Patient doing well No acute events overnight Pain is well controlled Exam/Review of Systems Vital Signs Vitals Vital Signs Date Temp Pulse Resp B/P (MAP) Pulse Ox O2 O2 Flow FiO2 Time Delivery Rate 07/11/18 98.0 71 18 142/70 96 13:43 (94) 07/10/18 Room Air 14:18 07/07/18 3.0 15:30 Intake and Output 07/10/18 07/10/18 07/11/18 1515:00 23:00 07:00 IntakeIntake Total 450 ml 1070 ml 1070 ml OutputOutput Total 800 ml 600 ml 1140 ml BalanceBalance -350 ml 470 ml -70 ml Exam Free Text/Dictation Right lower extremity: Hinged knee brace is in place and locked in extension. Incisional wound VAC and dressing: clean, dry, and intact, no erythema. Sensation intact to light touch in a sural, saphenous, deep peroneal, superficial peroneal, medial and lateral plantar nerve distribution. Motor is intact, patient able to dorsiflex and plantarflex ankle and extend and flex great toe. Dorsalis Pedis pulse +2, Brisk capillary refill. Compartments are soft. Calves non-tender to palpation bilaterally. Results Result Diagram: 07/11/18 0441 07/11/18 0441 EZE BYERS MD July 11, 2018 18:27
[2018-07-11 20:11] VITALS: BP 142/99; PULSE 72; RESP 18
[2018-07-11] MEDS: GABAPENTIN 300 MG CAP PO SCH (21:05)
[2018-07-12 01:46] VITALS: BP 138/98; PULSE 78; RESP 18
[2018-07-12] MEDS: oxyCODONE 5 MG TAB PO PRN ×3 (03:17→15:28)
[2018-07-12] MEDS: ACETAMINOPHEN 500 MG TAB PO SCH ×2 (05:43→14:43)
[2018-07-12] MEDS: PANTOPRAZOLE (EC) 40 MG TAB PO SCH (05:43)
[2018-07-12] MEDS: PIPER-TAZO 3.375 GM IV (PMX) 100 ML IVPB SCH ×2 (05:43→12:00)
--- NOTE | 2018-07-12 07:17 | CONS ---
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 Aragon from [facility] who was his ID doctor prior to his recent move to [place] will order picc line placement (already placed by Dr. Salazar) anticipate 6 weeks of IV therapy check ESR in a.m. 07/11 - PICC line not placed yet will continue with IV zosyn thru 08/19 case management referral made for home IV zosyn via a CADD pump to follow weekly cbc, bmp, ESR while on zosyn 07/12 - ESR is 32, PICC line is in place await home health to be set up for his IV zosyn thru 08/19/18 weekly CBC, BMP, ESR have also been ordered pt's prior infections in [facility] included MSSA of joint and pseudomonas in blood at different times in light of these infections I will continue with IV zosyn ok for d/c from ID perspective once his outpt IV zosyn has been set up Consultation Date/Type/Reason Admit Date/Time July 07, 2018 at 05:46 Initial Consult Date 07/10/18 Type of Consult ID Requesting Provider: EZE SALAZAR MD Date/Time of Note DATE: 07/12/18 TIME: 07:12 24 HR Interval Summary Free Text/Dictation pt is doing well case management is working on trying to find a home health agency for him no N, V, D spoke to Dr. Aragon (his ID doc in [facility]) and pt had MSSA infection of the knee which necessitated the explantation of his R knee components and then he got a couple of spacer replacements and during this period he got pseudomonal bacteremia which was felt to be due to his picc line pt was not consistent with getting his merrem at that time but when he was last seen in 2016 his knee was looking good with a normal ESR but he was still with a spacer in place Exam/Review of Systems Exam Vitals Vital Signs Date Temp Pulse Resp B/P (MAP) Pulse Ox O2 O2 Flow FiO2 Time Delivery Rate 07/12/18 97.8 78 18 138/98 98 01:46 (111) 07/10/18 Room Air 14:18 Intake and Output 07/11/18 07/11/18 07/12/18 1515:00 23:00 07:00 IntakeIntake Total 350 ml 1660 ml 800 ml OutputOutput Total 1000 ml 1230 ml BalanceBalance 350 ml 660 ml -430 ml Constitutional: alert, oriented Respiratory: clear to auscultation Cardiovascular: regular rate and rhythm Gastrointestinal: soft, non-tender Results Result Diagram: 07/12/18 0429 07/12/18 0430 Results 24hrs Laboratory Tests Test 07/11/18 08:08 07/12/18 04:29 07/12/18 04:30 Lab Scanned Report BLOOD TRANSFUSION White Blood Count 7.0 # Red Blood Count 2.90 L Hemoglobin 8.0 L Hematocrit 25.1 L Mean Corpuscular Volume 86.6 Mean Corpuscular Hemoglobin 27.6 L Mean Corpuscular 31.9 L Hemoglobin Concent Red Cell Distribution Width 15.1 H Platelet Count 310 Mean Platelet Volume 8.9 Immature Granulocytes % 1.900 H Neutrophils % 59.5 Lymphocytes % 23.5 Monocytes % 10.6 Eosinophils % 3.9 Basophils % 0.6 Nucleated Red Blood Cells % 0.0 Immature Granulocytes # 0.130 H Neutrophils # 4.2 Lymphocytes # 1.6 Monocytes # 0.7 Eosinophils # 0.3 Basophils # 0.0 Nucleated Red Blood Cells # 0.0 Sodium Level 141 Potassium Level 4.2 Chloride Level 108 Carbon Dioxide Level 30 Anion Gap 3 L Blood Urea Nitrogen 24 H Creatinine 1.15 Est Glomerular Filtrat > 60 Rate mL/min Glucose Level 108 Calcium Level 8.7 Medications Medication Current Medications IV Flush (NS 3 ml) 3 ml PER PROTOCOL IV ; Start 07/07/18 at 15:30 Oxycodone HCl (Roxicodone) 15 mg Q4H PRN PO .PAIN Last administered on 07/12/18at 03:17; Admin Dose 15 MG; Start 07/07/18 at 15:30 Oxycodone HCl (Roxicodone) 10 mg Q4H PRN PO .PAIN Last administered on 07/08/18at 10:13; Admin Dose 10 MG; Start 07/07/18 at 15:30 Oxycodone HCl (Roxicodone) 5 mg Q4H PRN PO .PAIN; Start 07/07/18 at 15:30 Hydromorphone HCl (Dilaudid) 1 mg Q3H PRN IV .BREAKTHROUGH PAIN Last administered on 07/09/18 09:34; Admin Dose 1 MG; Start 07/07/18 at 15:30 Acetaminophen (Tylenol Tab) 1,000 mg Q8 PO Last administered on 07/12/18 05:43; Admin Dose 1,000 MG; Start 07/07/18 at 22:00 Ondansetron HCl (Zofran Inj) 4 mg Q4H PRN IV NAUSEA/VOMITING; Start 07/08/18 at 15:30 Gabapentin (Neurontin) 300 mg QHS PO Last administered on 07/11/18 21:05; Admin Dose 300 MG; Start 07/07/18 at 21:00 Pantoprazole (Protonix Tab) 40 mg DAILY@06 PO Last administered on 07/12/18 05:43; Admin Dose 40 MG; Start 07/09/18 at 06:00 Simethicone (Mylicon) 80 mg TID PRN PO .GAS; Start 07/07/18 at 15:30 Senna/Docusate Sodium (Senokot-S) 2 tab BID PRN PO .CONSTIPATION; Start 07/07/18 at 15:30 Magnesium Hydroxide (Milk Of Mag) 30 ml HS PRN PO .CONSTIPATION; Start 07/07/18 at 15:30 Bisacodyl (Dulcolax Supp) 10 mg DAILY PRN [place] .CONSTIPATION; Start 07/07/18 at 15:30 Sodium Biphosphate/ Sodium Phosphate (Fleet Enema) 133 ml DAILY PRN [place] .CONSTIPATION; Start 07/07/18 at 15:30 Diphenhydramine HCl (Benadryl) 25 mg Q4H PRN IV .ITCHING Last administered on 07/08/18 10:14; Admin Dose 25 MG; Start 07/07/18 at 15:30 Naloxone HCl (Narcan) 0.2 mg Q2M PRN IV .RESP RATE; Start 07/07/18 at 15:30 Bethanechol Chloride (Urecholine) 25 mg URINARY CATH D/C PRN PO UNABLE TO VOID Last administered on 07/08/18at 10:02; Admin Dose 25 MG; Start 07/07/18 at 15:30 Aspirin (Halfprin) 81 mg BID PO Last administered on 07/11/18 21:05; Admin Dose 81 MG; Start 07/08/18 at 09:00 Nicotine (Nicoderm 7 Mg/ 24 Hr) 1 patch DAILY TRANSDERM Last administered on 07/11/18 09:42; Admin Dose 1 PATCH; Start 07/07/18 at 17:00 Piperacillin Sod/ Tazobactam Sod 100 ml @ 200 mls/hr Q6 IVPB Last administered on 07/12/18 05:43; Admin Dose 200 MLS/HR; Start 07/08/18 at 19:00 Sodium Chloride 1,000 ml @ 75 mls/hr [id number] IV Last administered on 07/11/18 09:54; Admin Dose 75 MLS/HR; Start 07/10/18 at 17:30 IV Flush (NS 10 ml) 10 ml PRN PRN IV IV PROTOCOL; Start 07/11/18 at 16:00 TATE LORENZANA MD July 12, 2018 07:17
[2018-07-12 08:33] VITALS: BP 161/89; PULSE 76; RESP 18
[2018-07-12] MEDS: ASPIRIN (EC) 81 MG TAB PO SCH (09:21)
[2018-07-12] MEDS: NICOTINE (7 MG/24 HR) PATCH TRANSDERM SCH (09:23)
[2018-07-12] MEDS ORDERED: hydrALAzine 20 MG INJ IV PRN (12:00)
[2018-07-12 12:01] VITALS: BP 149/75; PULSE 72
--- NOTE | 2018-07-12 13:12 | PN ---
Date/Time of Note Date/Time of Note DATE: 07/12/18 TIME: 13:11 Assessment/Plan VTE Prophylaxis Risk score (from Nsg)>0 risk: 10 SCD applied (from Nsg): Yes Pharmacological prophylaxis: other Lines/Catheters IV Catheter Type (from Nrsg): PICC Line Central line still needed: Yes Urinary Cath still in place: No Assessment/Plan Hospital Course S: Patient had no acute events overnight, P ICC placed. Wound VAC still in place. O: VS - see below PE: Gen: Well developed man in no acute distress. Eyes: PERRL, no icterus HEENT: Clear oropharynx, moist mucous membranes Neck: Supple, nontender, no lymphadenopathy Card: Regular rate and rhythm, no murmurs Pulm: Clear to auscultation bilaterally Abd: Soft, nontender, nondistended. Ext: L knee scar well healed. 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 23 x 8 cm Explantation of right total knee arthroplasty and implementation of antibiotic spacer Application of negative pressure dressing Assessment/Plan: 63 yo man history of infected R knee prosthesis presents after first stage of elective total knee revision. #R knee revision - POD # 5. Fluid culture results positive for Enterobacter growth. - continue Percocet for post-op pain. - continue with Zosyn IV abx per ID rec's - will need 6 weeks of IV antibiotics total (until August 19), PICC placed - PT, weight bearing per orthopedics. #Nicotine use- Patient reports quitting cigarettes but apparently is now vaping - nicotine patch. Internal medicine will continue to follow -per discussion with orthopedic surgery team likely for discharge today once confirmation of IV antibiotics set up and home health PT has been done by case management. Result Diagram: 07/12/18 0429 07/12/18 0430 Results 24hrs Laboratory Tests Test 07/12/18 04:29 07/12/18 04:30 White Blood Count 7.0 # Red Blood Count 2.90 L Hemoglobin 8.0 L Hematocrit 25.1 L Mean Corpuscular Volume 86.6 Mean Corpuscular Hemoglobin 27.6 L Mean Corpuscular Hemoglobin Concent 31.9 L Red Cell Distribution Width 15.1 H Platelet Count 310 Mean Platelet Volume 8.9 Immature Granulocytes % 1.900 H Neutrophils % 59.5 Lymphocytes % 23.5 Monocytes % 10.6 Eosinophils % 3.9 Basophils % 0.6 Nucleated Red Blood Cells % 0.0 Immature Granulocytes # 0.130 H Neutrophils # 4.2 Lymphocytes # 1.6 Monocytes # 0.7 Eosinophils # 0.3 Basophils # 0.0 Nucleated Red Blood Cells # 0.0 Sodium Level 141 Potassium Level 4.2 Chloride Level 108 Carbon Dioxide Level 30 Anion Gap 3 L Blood Urea Nitrogen 24 H Creatinine 1.15 Est Glomerular Filtrat Rate mL/min > 60 Glucose Level 108 Calcium Level 8.7 Exam/Review of Systems Exam Vitals Vital Signs Date Temp Pulse Resp B/P (MAP) Pulse Ox O2 O2 Flow FiO2 Time Delivery Rate 07/12/18 72 149/75 12:01 (99) 07/12/18 98.1 18 96 08:33 07/10/18 Room Air 14:18 Intake and Output 07/11/18 07/11/18 07/12/18 1515:00 23:00 07:00 IntakeIntake Total 350 ml 1660 ml 800 ml OutputOutput Total 1000 ml 1230 ml BalanceBalance 350 ml 660 ml -430 ml Results Results 24hrs Laboratory Tests Test 07/12/18 04:29 07/12/18 04:30 White Blood Count 7.0 # Red Blood Count 2.90 L Hemoglobin 8.0 L Hematocrit 25.1 L Mean Corpuscular Volume 86.6 Mean Corpuscular Hemoglobin 27.6 L Mean Corpuscular Hemoglobin Concent 31.9 L Red Cell Distribution Width 15.1 H Platelet Count 310 Mean Platelet Volume 8.9 Immature Granulocytes % 1.900 H Neutrophils % 59.5 Lymphocytes % 23.5 Monocytes % 10.6 Eosinophils % 3.9 Basophils % 0.6 Nucleated Red Blood Cells % 0.0 Immature Granulocytes # 0.130 H Neutrophils # 4.2 Lymphocytes # 1.6 Monocytes # 0.7 Eosinophils # 0.3 Basophils # 0.0 Nucleated Red Blood Cells # 0.0 Sodium Level 141 Potassium Level 4.2 Chloride Level 108 Carbon Dioxide Level 30 Anion Gap 3 L Blood Urea Nitrogen 24 H Creatinine 1.15 Est Glomerular Filtrat Rate mL/min > 60 Glucose Level 108 Calcium Level 8.7 Medications Medication Current Medications IV Flush (NS 3 ml) 3 ml PER PROTOCOL IV ; Start 07/07/18 at 15:30 Oxycodone HCl (Roxicodone) 15 mg Q4H PRN PO .PAIN Last administered on 07/12/18 09:26; Admin Dose 15 MG; Start 07/07/18 at 15:30 Oxycodone HCl (Roxicodone) 10 mg Q4H PRN PO .PAIN Last administered on 07/08/18 10:13; Admin Dose 10 MG; Start 07/07/18 at 15:30 Oxycodone HCl (Roxicodone) 5 mg Q4H PRN PO .PAIN; Start 07/07/18 at 15:30 Hydromorphone HCl (Dilaudid) 1 mg Q3H PRN IV .BREAKTHROUGH PAIN Last administered on 07/09/18 09:34; Admin Dose 1 MG; Start 07/07/18 at 15:30 Acetaminophen (Tylenol Tab) 1,000 mg Q8 PO Last administered on 07/12/18 05:43; Admin Dose 1,000 MG; Start 07/07/18 at 22:00 Ondansetron HCl (Zofran Inj) 4 mg Q4H PRN IV NAUSEA/VOMITING; Start 07/08/18 at 15:30 Gabapentin (Neurontin) 300 mg QHS PO Last administered on 07/11/18 21:05; Admin Dose 300 MG; Start 07/07/18 at 21:00 Pantoprazole (Protonix Tab) 40 mg DAILY@06 PO Last administered on 07/12/18 05:43; Admin Dose 40 MG; Start 07/09/18 at 06:00 Simethicone (Mylicon) 80 mg TID PRN PO .GAS; Start 07/07/18 at 15:30 Senna/Docusate Sodium (Senokot-S) 2 tab BID PRN PO .CONSTIPATION; Start 07/07/18 at 15:30 Magnesium Hydroxide (Milk Of Mag) 30 ml HS PRN PO .CONSTIPATION; Start 07/07/18 at 15:30 Bisacodyl (Dulcolax Supp) 10 mg DAILY PRN [place] .CONSTIPATION; Start 07/07/18 at 15 :30 Sodium Biphosphate/ Sodium Phosphate (Fleet Enema) 133 ml DAILY PRN DC .CONSTIPATION; Start 07/07/18 at 15:30 Diphenhydramine HCl (Benadryl) 25 mg Q4H PRN IV .ITCHING Last administered on 07/08/18 10:14; Admin Dose 25 MG; Start 07/07/18 at 15:30 Naloxone HCl (Narcan) 0.2 mg Q2M PRN IV .RESP RATE; Start 07/07/18 at 15:30 Bethanechol Chloride (Urecholine) 25 mg URINARY CATH D/C PRN PO UNABLE TO VOID Last administered on 07/08/18 10:02; Admin Dose 25 MG; Start 07/07/18 at 15:30 Aspirin (Halfprin) 81 mg BID PO Last administered on 07/12/18 09:21; Admin Dose 81 MG; Start 07/08/18 at 09:00 Nicotine (Nicoderm 7 Mg/ 24 Hr) 1 patch DAILY TRANSDERM Last administered on 07/12/18 09:23; Admin Dose 1 PATCH; Start 07/07/18 at 17:00 Piperacillin Sod/ Tazobactam Sod 100 ml @ 200 mls/hr Q6 IVPB Last administered on 07/12/18 12:00; Admin Dose 200 MLS/HR; Start 07/08/18 at 19:00 IV Flush (NS 10 ml) 10 ml PRN PRN IV IV PROTOCOL; Start 07/11/18 at 16:00 Hydralazine HCl (Apresoline) 10 mg Q6H PRN IV ELEVATED SYSTOLIC BP; Start 07/12/18 at 12:00 FE ELIZABETH July 12, 2018 13:12
[2018-07-12 14:00] VITALS: BP 140/74; PULSE 76; RESP 18
--- NOTE | 2018-07-12 14:05 | PN ---
Date/Time of Note Date/Time of Note DATE: 07/12/18 TIME: 13:59 Assessment/Plan Lines/Catheters IV Catheter Type (from Nrs): PICC Line Morrison in Place (from Nrs): No Assessment/Plan Chief Complaint/Hosp Course 63-year-old male postop day #5 status post stage I of two-stage right total knee arthroplasty revision for recurrent and chronic infection. Overall the patient is doing very well. However I have significant concern about the wound from the draining sinus. This may not survive. If this is the case he will require wound care. Once this wound is healed and infection is cleared he will need a plastics consultation for medial gastrocnemius flap for the second stage. Microbiology cultures are returning gram-negative rods with Enterobacter cloacae. Plan: Continue incisional wound VAC. Will DC postop day #5 for wound check. Nonweightbearing right lower extremity Need to be locked in full extension with knee immobilizer. Hinged knee brace ordered for patient. When arise we will place with knee locked in full extension. Continue IV antibiotics. Vancomycin and Zosyn. Dr. Lockett from infectious disease recommending continuing Zosyn for 6 weeks. Continue to follow cultures DVT prophylaxis: SCDs and aspirin 81 mg twice daily Discharge planning: Will need IV antibiotics on discharge. SNF vs home with home health no earlier than postop day #5 Subjective 24 Hr Interval Summary Patient doing well No acute events overnight Pain is well controlled Exam/Review of Systems Vital Signs Vitals Vital Signs Date Temp Pulse Resp B/P (MAP) Pulse Ox O2 O2 Flow FiO2 Time Delivery Rate 07/12/18 72 149/75 12:01 (99) 07/12/18 98.1 18 96 08:33 07/10/18 Room Air 14:18 Intake and Output 07/11/18 07/11/18 07/12/18 1515:00 23:00 07:00 IntakeIntake Total 350 ml 1660 ml 800 ml OutputOutput Total 1000 ml 1230 ml BalanceBalance 350 ml 660 ml -430 ml Exam Free Text/Dictation Right lower extremity: Surgical incision is clean, dry, intact. Drain site has serous drainage. Ex cision of draining sinus is showing signs of skin edge necrosis the skin is macerated. Sensation intact to light touch in a sural, saphenous, deep peroneal, superficial peroneal, medial and lateral plantar nerve distribution. Motor is intact, patient able to dorsiflex and plantarflex ankle and extend and flex great toe. Dorsalis Pedis pulse +2, Brisk capillary refill. Compartments are soft. Calves non-tender to palpation bilaterally. Results Result Diagram: 07/12/18 0429 07/12/18 0430 EZE BYERS MD July 12, 2018 14:05
--- NOTE | 2018-07-12 14:07 | PDOCDIS ---
Discharge Instructions CONDITION [id number] Patient Condition: Cfstc0k Fair HOME CARE INSTRUCTIONS: [id number] Diet Instructions: Tskab4k Regular ACTIVITY: [id number] Activity Restrictions: [id number] Slowly Increase Activity Rest between Activity Avoid heavy lifting Do not Drive Do not operate Machinery Do not operate Power Tool Avoid Heavy Housework Weight Bearing (Non weight bearing right lower extremity. No ROM of the right knee. Hinged knee brace locked in extension.) [id number] Bathing Restrictions: [id number] Sponge Bath (keep inccision dry) FOLLOW UP/APPOINTMENTS Follow-up Plan 1 week for wound check EZE BYERS MD July 12, 2018 14:06
[2018-07-12] MEDS ORDERED: PIPE3.374 IVPB (14:12)
[2018-07-12] MEDS ORDERED: GABA300C16 PO (14:12)
[2018-07-12] MEDS ORDERED: ASPI-1044 PO (14:12)
[2018-07-12] MEDS ORDERED: Acetaminophen PO (14:12)
--- NOTE | 2018-07-12 14:49 | DS ---
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 Overall the patient is doing very well. However I have significant concern about the wound from the draining sinus. This may not survive. If this is the case he will require wound care. Once this wound is healed and infection is cleared he will need a plastics consultation for medial gastrocnemius flap for the second stage. Microbiology cultures are returning gram-negative rods with Enterobacter cloacae. Plan: Continue incisional wound VAC. Will DC postop day #5 for wound check. Nonweightbearing right lower extremity Need to be locked in full extension with knee immobilizer. Hinged knee brace ordered for patient. When arise we will place with knee locked in full extension. Continue IV antibiotics. Vancomycin and Zosyn. Dr. Lockett from infectious disease recommending continuing Zosyn for 6 weeks. Continue to follow cultures DVT prophylaxis: SCDs and aspirin 81 mg twice daily Discharge planning: Will need IV antibiotics on discharge. Follow-up Plan 1 week for wound check Primary Care Provider Not On Staff Doctor Pending Labs Laboratory Tests Test 07/12/18 04:29 07/12/18 04:30 White Blood Count 7.0 10^3/ul (4.8-10.8) Red Blood Count 2.90 10^6/ul (4.70-6.10) Hemoglobin 8.0 g/dl (14.0-18.0) Hematocrit 25.1 % (42.0-52.0) Mean Corpuscular Volume 86.6 fl (82.0-101.0) Mean Corpuscular Hemoglobin 27.6 pg (29.0-33.0) Mean Corpuscular 31.9 g/dl (32.0-37.0) Hemoglobin Concent Red Cell Distribution Width 15.1 % (11.5-14.5) Platelet Count 310 10^3/UL (140-415) Mean Platelet Volume 8.9 fl (7.4-10.4) Immature Granulocytes % 1.900 % (0.001-0.429) Neutrophils % 59.5 % (39.0-77.0) Lymphocytes % 23.5 % (15.0-51.0) Monocytes % 10.6 % (0.0-11.0) Eosinophils % 3.9 % (0.0-7.0) Basophils % 0.6 % (0.0-2.0) Nucleated Red Blood Cells % 0.0 /100WBC (0.0-0.0) Immature Granulocytes # 0.130 10^3/ul (0.0-0.031) Neutrophils # 4.2 10^3/ul (1.6-7.5) Lymphocytes # 1.6 10^3/ul (0.8-2.9) Monocytes # 0.7 10^3/ul (0.3-0.9) Eosinophils # 0.3 10^3/ul (0.0-0.5) Basophils # 0.0 10^3/ul (0.0-0.1) Nucleated Red Blood Cells # 0.0 10^3/ul (0.0-0.0) Sodium Level 141 mmol/L (135-144) Potassium Level 4.2 mmol/L (3.5-5.1) Chloride Level 108 mmol/L (97-110) Carbon Dioxide Level 30 mmol/L (21-31) Anion Gap 3 (5-13) Blood Urea Nitrogen 24 mg/dl (7-20) Creatinine 1.15 mg/dl (0.61-1.24) Est Glomerular Filtrat > 60 mL/min (>60) Rate mL/min Glucose Level 108 mg/dl (70-220) Calcium Level 8.7 mg/dl (8.4-10.2) EZE BYERS MD July 12, 2018 14:48
[2018-07-12] MEDS ORDERED: NICO-544 TRANSDERM (16:44)
== END 2018-07-12 17:00 | disposition home health service (06) | DRG 467 ==
LOC: REC 07-07 05:46 → MS1 07-07 17:04
PROVIDERS: ADMIT Orthopaedic Surgery Adult Reconstructive Orthopaedic Surgery; ATTEND Orthopaedic Surgery Adult Reconstructive Orthopaedic Surgery
PROC: 0SPC0JZ Removal of Synthetic Substitute from Right Knee Joint, Open Approach (ICD-10-PCS; 2018-07-07)
PROC: 0SRC0EZ Replacement of Right Knee Joint with Articulating Spacer, Open Approach (ICD-10-PCS; 2018-07-07)
PROC: 0QBG0ZZ Excision of Right Tibia, Open Approach (ICD-10-PCS; principal; 2018-07-07 08:00)
DX: T84.53XA Infection and inflammatory reaction due to internal right knee prosthesis, initial encounter (principal); M00.9 Pyogenic arthritis, unspecified; L02.415 Cutaneous abscess of right lower limb; M25.461 Effusion, right knee; F17.290 Nicotine dependence, other tobacco product, uncomplicated; Z96.651 Presence of right artificial knee joint
CPT/HCPCS: 36430; 36569; 71045; 73560; 76937; 80048; 80202; 81003; 85025; 85651; 86850; 86900; 86901; 86920; 87070; 87075; 87102; 87116; 88300; 97110; 97116; 97161; 97167; 97530; C1713; J0131; J0171; J0360; J0690; J1100; J1170; J1200; J2250; J2274; J2405; J2543; J2710; J2795; J3010; J3370; J7030; J7040; J7120; L1832; P9016; Q9968

== ENCOUNTER 2018-05-30 13:00 | Emergency (ER) | payer BC ==
[~2018-05-30] VITALS: Ht 170.2 cm; Wt 70.0 kg
[2018-05-30 13:10] VITALS: Ht 170.2 cm; Wt 70.0 kg
[2018-05-30] MEDS ORDERED: LIDOCAINE 1% (MDV) 20 ML INJ SC ONE (17:30)
--- NOTE | 2018-05-30 18:16 | ERD ---
ER Documentation Chief Complaint Chief Complaint LEFT KNEE LARGE LUMP S/P TKR, PAIN TO TOUCH, PT REPORTS DX INFECTION HPI This is a 63-year-old male who with a right leg fluid collection/abscess for the past couple of weeks. The location is at the area just medial to the tibial tuberosity that has had for a few weeks but he said he had a chronic right knee infection with multiple knee revisions over the past couple of years. He said he just finished a round of Cipro but the collection is not going away ROS All systems reviewed and are negative except as per history of present illness. Medications Home Meds No Active Prescriptions or Reported Meds Allergies Allergies: Coded Allergies: No Known Allergy (Unverified , 05/30/18) PMhx/Soc History of Surgery: Yes (bilat knee TKR) Hx Alcohol Use: Yes (occasional use) Hx Substance Use: Yes (marijuana nightly for pain mgmt) Hx Tobacco Use: Yes (occasional use) Smoking Status: Current some day smoker FmHx Family History: No coronary disease Physical Exam Vitals Vital Signs Date Temp Pulse Resp B/P (MAP) Pulse Ox O2 O2 Flow FiO2 Time Delivery Rate 05/30/18 98.2 78 18 132/78 98 Room Air 17:04 (96) 05/30/18 98.6 112 18 197/91 96 13:10 (126) Physical Exam Const: Well-developed, well-nourished Head: Atraumatic, normocephalic Eyes: Normal Conjunctiva, PERRLA, EOMI, normal sclera, no nystagmus ENT: Normal External Ears, Nose and Mouth, moist mucus membranes. Neck: Full range of motion. No meningismus, no lymphadenopathy. Resp: Clear to auscultation bilaterally, no wheezing, rhonchi, rales Cardio: Regular rate and rhythm, no murmurs, S1 S2 present Abd: Soft, non tender x 4, non distended. Normal bowel sounds, no guarding or rebound, no pulsitile abdominal masses or bruits Skin: There is a fluid collection approximately 3 inches x 2 inches medial to the tibial tuberosity that is fluctuant Back: No midline or flank tenderness Ext: No cyanosis, or edema, FROM x 4, normal inspection, neurovascularly intact x 4 Neur: Awake and alert, STR 5/5 x 4, sensation intact x 4, no focal findings, cerebellum intact Psych: Normal Mood and Affect Results 24 hrs Current Medications Medications Dose Sig/Isa Start Time Status Last (Trade) Ordered Route PRN Stop Time Admin Dose Reason Admin Lidocaine 20 ml ONCE ONCE 05/30/18 DC (Xylocaine SC 17:30 1% (Mdv) 20 05/30/18 17:31 ml) Procedures/MDM Abscess Incision and Drainage with irrigation by me: Location: Leg Anesthesia: Local 1% Lidocaine Technique: Irrigated. Disrupted loculations w/ instrumentation, copious amount of pus was expressed and sent for wound culture Packing: Iodoform gauze Complications: Neurovascularly intact post procedure 48 hour wound check. Scar minimization instructions given. We will send off wound culture await sensitivities at this time will start Keflex and Bactrim Advised him to remove packing in 24 hours Departure Diagnosis: Primary Impression: Abscess Condition: Stable DEION JESUS DO May 30, 2018 18:16
[2018-05-30] MEDS ORDERED: SULF1TAB31 PO (18:17)
[2018-05-30] MEDS ORDERED: CEPH-443 PO (18:17)
[2018-05-30] MEDS ORDERED: HYDR-3980 PO (18:18)
[2018-05-30 18:30] VITALS: BP 158/88; PULSE 82; RESP 20
== END 2018-05-30 18:46 | disposition home or self-care (01) ==
LOC: E/R 13:00
DX: L02.415 Cutaneous abscess of right lower limb (principal); F17.210 Nicotine dependence, cigarettes, uncomplicated
CPT/HCPCS: 10060; 87070; Z7502; Z7610

== ENCOUNTER 2018-06-20 19:31 | Inpatient (IN) | payer BC ==
[~2018-06-20] VITALS: Ht 170.2 cm; Wt 73.0 kg
[~2018-06-20 19:31] MED LIST: CEPH-443 PO; HYDR-3980 PO; SULF1TAB31 PO
[2018-06-20] MEDS ORDERED: VANCOMYCIN 1 GM (PMX) 250 ML IVPB STA (21:38)
[2018-06-20] MEDS ORDERED: PIPER-TAZO 3.375 GM IV (PMX) 100 ML IVPB STA (21:38)
--- NOTE | 2018-06-20 23:07 | ERD ---
ER Documentation Chief Complaint Chief Complaint R KNEE PAIN, SWELLING S/P KNEE SX 8 MONTHS AGO HPI 63-year-old male with a history of right artificial knee complicated by multiple postop infections over the past few years presenting with complaints of right knee pain and lower leg pain. He states that he has had this for a very long time but recently his symptoms worsened within the past few days. About 8 months ago he had surgery done at [facility] and at that time had a right knee joint infection. Since then he has been going to his primary care doctor to get antibiotics as he has not had insurance or a specialist that he can see. He has intermittently been treated with multiple courses of oral antibiotics without significant improvement of his symptoms. He does have difficulty walking secondary to pain but he can bear weight on that leg. He has been feeling chills for the past few days. He is unsure if he has had any fevers. [place] and he has not have an orthopedist at this time. Denies any numbness or tingling in the leg. He does have pain that is now in his lainez area which is new for him. He was here recently and had an abscess drained below the right knee. ROS All systems reviewed and are negative except as per history of present illness. Medications Home Meds Active Scripts Cephalexin* (Keflex*) 500 Mg Capsule, 500 MG PO QID for 10 Days, CAP Prov:DEION JESUS DO 05/30/18 Discontinued Scripts Hydrocodone/Acetaminophen ([place] 10-325 Tablet) 1 Each Tablet, 1 TAB PO Q6H PRN for PAIN, #16 TAB Prov:BRAULIO JESUSS Mahendra DO 05/30/18 Sulfamethoxazole/Trimethoprim* (Bactrim Ds* Tablet) 1 Each Tablet, 1 TAB PO BID, #20 TAB Prov:ANOOP JESUSSTCALS A. DO 05/30/18 Allergies Allergies: Coded Allergies: No Known Allergy (Unverified , 06/20/18) PMhx/Soc History of Surgery: Yes (bilat knee TKR) Hx Alcohol Use: Yes (occasional use) Hx Substance Use: Yes (marijuana nightly for pain mgmt) Hx Tobacco Use: Yes (occasional use) Smoking Status: Current every day smoker FmHx Family History: No diabetes Physical Exam Vitals Vital Signs Date Temp Pulse Resp B/P (MAP) Pulse Ox O2 O2 Flow FiO2 Time Delivery Rate 06/20/18 100.6 88 18 123/85 99 Room Air 23:46 (98) 06/20/18 100.6 85 20 128/94 98 Room Air 22:40 (105) 06/20/18 100.6 91 17 144/85 99 Room Air 21:49 (104) 06/20/18 100.6 92 18 165/80 100 19:32 (108) Physical Exam Const: No acute distress, well-appearing, nontoxic Head: Atraumatic Eyes: Normal Conjunctiva ENT: Normal External Ears, Nose and Mouth. Neck: Full range of motion. No meningismus. Resp: Clear to auscultation bilaterally Cardio: Regular rate and rhythm, no murmurs Abd: Soft, non tender, non distended. Normal bowel sounds Skin: No petechiae or rashes Back: No midline or flank tenderness Ext: Right lower extremity with right knee joint effusion. Surgical scar noted. No overlying erythema or significant warmth. Limited range of motion due to effusion. There is an area of fluctuance and erythema in the inferior medial aspect of the leg below the knee joint, concerning for abscess. Erythema extends down the lainez. Left knee with surgical scar, no joint effusion or erythema. Full range of motion at all joints of the left lower extremity. 2+ DP and PT pulses bilaterally Neur: Awake and alert, no facial asymmetry, strength and sensations grossly intact in all 4 extremities Psych: Normal Mood and Affect Result Diagram: 06/20/18204906/20/182049 Results 24 hrs Laboratory Tests Test 06/20/18 20:50 06/20/18 20:56 White Blood Count 10.5 10^3/ul Red Blood Count 4.38 10^6/ul Hemoglobin 12.1 g/dl Hematocrit 38.3 % Mean Corpuscular Volume 87.4 fl Mean Corpuscular Hemoglobin 27.6 pg Mean Corpuscular Hemoglobin Concent 31.6 g/dl Red Cell Distribution Width 15.1 % Platelet Count 394 10^3/UL Mean Platelet Volume 8.6 fl Immature Granulocytes % 0.600 % Neutrophils % 67.6 % Lymphocytes % 17.7 % Monocytes % 11.9 % Eosinophils % 1.7 % Basophils % 0.5 % Nucleated Red Blood Cells % 0.0 /100WBC Immature Granulocytes # 0.060 10^3/ul Neutrophils # 7.1 10^3/ul Lymphocytes # 1.9 10^3/ul Monocytes # 1.3 10^3/ul Eosinophils # 0.2 10^3/ul Basophils # 0.1 10^3/ul Nucleated Red Blood Cells # 0.0 10^3/ul Prothrombin Time 12.6 Sec Prothrombin Time Ratio 1.0 INR International Normalized Ratio 0.93 Activated Partial Thromboplast Time 27.7 Sec Sodium Level 141 mmol/L Potassium Level 4.8 mmol/L Chloride Level 105 mmol/L Carbon Dioxide Level 28 mmol/L Anion Gap 8 Blood Urea Nitrogen 17 mg/dl Creatinine 0.96 mg/dl Est Glomerular Filtrat Rate mL/min > 60 mL/min Glucose Level 99 mg/dl Calcium Level 9.1 mg/dl Total Bilirubin 0.1 mg/dl Direct Bilirubin 0.00 mg/dl Indirect Bilirubin 0.1 mg/dl Aspartate Amino Transf (AST/SGOT) 34 IU/L Alanine Aminotransferase (ALT/SGPT) 16 IU/L Alkaline Phosphatase 130 IU/L Total Protein 8.0 g/dl Albumin 3.7 g/dl Globulin 4.30 g/dl Albumin/Globulin Ratio 0.86 POC Venous Lactate 0.9 mmol/L Current Medications Medications Dose Sig/Isa Start Time Status Last (Trade) Ordered Route PRN Stop Time Admin Dose Reason Admin Vancomycin 250 ml @ ONCE STAT 06/20/18 DC 06/20/18 HCl 125 mls/hr IVPB 21:38 22:31 06/20/18 23:37 Piperacillin 100 ml @ ONCE STAT 06/20/18 DC 06/20/18 Sod/ 200 mls/hr IVPB 21:38 21:45 Tazobactam 06/20/18 22:07 Sod Procedures/MDM EMERGENT LABS AND DIAGNOSTIC STUDIES: Lab Results above were reviewed and interpreted by me. CBC: no anemia or evidence of infection CMP:no e/o electrolyte abnormality, severe acidosis, alkalosis, renal failure, diabetic ketoacidosis, liver disease ESR and CRP pending Lactate within normal limits without evidence of sepsis or tissue hypoperfusion Blood cultures pending Radiology Results as interpreted by Radiology below were reviewed by Lian Espinoza MD: X-ray right knee and tib-fib pending Initial Nursing notes reviewed. Previous Medical Records requested via the Electronic Health Record. EMERGENCY DEPARTMENT COURSE / MEDICAL DECISION MAKING: Patient is presenting with right lower extremity pain. Vitals are notable for fever and tachycardia. Sepsis workup was initiated. No evidence of severe sepsis or septic shock. Patient was started on broad-spectrum antibiotics after blood cultures were drawn. At this time, exam is not consistent with a septic joint. However given his history of septic joint in the past, I cannot rule this out. I am more concerned about possible osteomyelitis of the lower limb. I consulted our hospitalist, Dr. Goyal, for admission. I think the patient does need MRI and orthopedic consult. He asked me to talk to the orthopedist transcription specialist. I spoke with Dr. Delaney, who states that this patient's case is too complex to be taken care of here. He recommended transfer to a tertiary care center. [facility], [facility], and [facility] were contacted for transfer. We are still awaiting response. Patient has been updated on the plan. Signed out to the oncoming ED physician, pending accepting facility for transfer. Departure Diagnosis: Primary Impression: Effusion, right knee Additional Impression: Cellulitis of right lower extremity Condition: Serious MALACHI ESPINOZA MD Jun 20, 2018 23:07
--- NOTE | 2018-06-21 05:20 | EN ---
Date/Time of Note Date/Time of Note DATE: 06/21/18 TIME: 05:20 ER Progress Note Patient is currently pending placement. Orthopedics on-call here feels that they cannot handle the case. Max assist they have no beds at this time. We will continue to try to place. JADEN CALLAHAN Jun 21, 2018 05:20
--- NOTE | 2018-06-21 12:34 | HP ---
Date/Time of Note Date/Time of Note DATE: 06/21/18 TIME: 12:34 Assessment/Plan VTE Prophylaxis Pharmacological prophylaxis: NA/contraindicated Pharm contraindication: surgical contra Lines/Catheters [facility] [place] Assessment/Plan Hospital Course 63-year-old male with comorbidities including arthritis with multiple joint surgeries specifically multiple surgeries to his right knee joint and chronic right knee infection. The patient came to the hospital with complaint of right knee pain, edema, and subjective fevers with evidence of moderate to large joint effusion on the right knee, who will be admitted to inpatient setting for further treatment and evaluation. 1. Moderate to large right knee joint effusion. -Suspect underlying infection. -Orthopedic surgery has been consulted. -Plan for arthrocentesis. -Status post antimicrobials in the emergency room. -Hold antimicrobials until arthrocentesis is done. -Obtain ID consult. -Patient does not appear septic at this time. 2. Normocytic anemia. -Etiology unclear. -Most probably anemia of chronic disease. -Monitor H&H closely. Plan: The patient will be admitted to inpatient medical surgical floor. The patient will be started on a regular diet. The patient will be started on DVT prophylaxis with SCD on the left lower extremity. The patient will remain a full code. Activities will be with assist. The rest of the patient's management will be based on the clinical course, inputs from consultants, and the results of diagnostic studies. Based on the patient's clinical presentation, he most probably requires at least 2 midnights' stay for further management and evaluation of his clinical presentation. The patient was seen in collaboration with Dr. Kemp. Result Diagram: 06/20/18204906/20/182049 Results 24hrs Laboratory Tests Test 06/20/18 20:50 06/20/18 20:56 06/20/18 21:38 White Blood Count 10.5 Red Blood Count 4.38 L Hemoglobin 12.1 L Hematocrit 38.3 L Mean Corpuscular Volume 87.4 Mean Corpuscular Hemoglobin 27.6 L Mean Corpuscular Hemoglobin Concent 31.6 L Red Cell Distribution Width 15.1 H Platelet Count 394 Mean Platelet Volume 8.6 Immature Granulocytes % 0.600 H Neutrophils % 67.6 Lymphocytes % 17.7 Monocytes % 11.9 H Eosinophils % 1.7 Basophils % 0.5 Nucleated Red Blood Cells % 0.0 Immature Granulocytes # 0.060 H Neutrophils # 7.1 Lymphocytes # 1.9 Monocytes # 1.3 H Eosinophils # 0.2 Basophils # 0.1 Nucleated Red Blood Cells # 0.0 Prothrombin Time 12.6 Prothrombin Time Ratio 1.0 INR International Normalized Ratio 0.93 Activated Partial Thromboplast Time 27.7 Sodium Level 141 Potassium Level 4.8 Chloride Level 105 Carbon Dioxide Level 28 Anion Gap 8 Blood Urea Nitrogen 17 Creatinine 0.96 Est Glomerular Filtrat Rate mL/min > 60 Glucose Level 99 Calcium Level 9.1 Total Bilirubin 0.1 L Direct Bilirubin 0.00 Indirect Bilirubin 0.1 Aspartate Amino Transf (AST/SGOT) 34 Alanine Aminotransferase (ALT/SGPT) 16 Alkaline Phosphatase 130 H Total Protein 8.0 Albumin 3.7 Globulin 4.30 H Albumin/Globulin Ratio 0.86 POC Venous Lactate 0.9 Erythrocyte Sedimentation Rate 30 H C-Reactive Protein 2.2 H HPI/ROS Admit Date/Time Admit Date/Time Jun 21, 2018 at 10:13 Hx of Present Illness This is a 63-year-old male with past medical history of arthritis and chronic infection of the right knee joint. The patient had multiple revisions of the right knee. The patient had his latest surgery about 8 months ago at the [facility]. As per the patient, his right knee joint was infected and he has been taking antibiotics as per the instructions of his primary care physicians. He also verbalized that he had a PICC line at one point of time for antimicrobial therapy. He does not follow an orthopedic surgeon as outpatient. The patient verbalized that his initial knee surgery was done in [facility]. The patient denied any fevers. He was complaining of chills. He has been taking marijuana for his right knee pain. The patient also verbalized difficulty in ambulation because of right knee pain. The patient was recently seen at [facility] emergency room in May 2018 where he had his right knee aspirated and the cultures were negative. In the emergency room, the patient underwent a right knee x-ray that was showing moderate to large joint effusion including posterior capsular distention and suprapatellar bursal distention. The patient also had a low-grade fever of 100.6 F. He had no leukocytosis. His ESR was elevated and there is C-reactive protein was elevated too. The patient was given a single dose of IV vancomycin and IV Zosyn in the emergency room. ROS Constitutional: chills Eyes: no complaints ENT: no complaints Respiratory: no complaints Cardiovascular: no complaints Gastrointestinal: no complaints Genitourinary: no complaints Musculoskeletal: bone/joint pain, restricted range of motion Skin: erythema, pruritis Neurologic: no complaints Endocrine: no complaints Lymphatic: no complaints Psychological: no complaints Immunologic: no complaints PMH/Family/Social Past Medical History 1. Arthritis. Coded Allergies: No Known Allergy (Unverified , 06/20/18) Past Surgical History 1. Left knee surgery. 2. Right knee surgery (multiple revisions). 3. Left shoulder surgery. 4. Cholecystectomy. Social History Lives at home. Originally from [facility]. Unemployed. Alcohol Use: occasionally Smoking Status: Current every day smoker Drug Use: marijuana Exam/Review of Systems Vital Signs Vitals Vital Signs Date Temp Pulse Resp B/P (MAP) Pulse Ox O2 O2 Flow FiO2 Time Delivery Rate 06/21/18 87 22 109/70 99 Room Air 12:00 (83) 06/21/18 98.0 05:42 Exam Exam General: Adequately build 63 year-old male lying in bed in no apparent distress. HEENT: Normocephalic, atraumatic. Eyes: Anicteric sclerae, conjunctivae clear. ENT: Nasal septum midline, oral mucosa moist. Neck supple, no JVD noticed. Respiratory: Bilaterally clear breath sounds. No use of accessory muscles of respiration. No adventitious breath sounds. Cardiovascular: S1, S2 heard. Regular rate and rhythm. Abdomen: Soft, nontender, and nondistended. Bowel sounds positive in all 4 quadrants. Genitourinary: Deferred. Extremities: No cyanosis, no clubbing. Right knee edema with tenderness to touch. Erythema in the medial aspect of the right knee. Peripheral pulses palpable. Neurologic: Cranial nerves II through XII grossly intact. The patient is awake, alert, and oriented. Skin: Normal skin turgor. No skin rashes. Additional Comments Right Knee X-Ray IMPRESSION: Status post tricompartmental right knee arthroplasty. No interval change identified in the alignment and configuration of the prostheses. Moderate to large joint effusion including posterior capsular distension and suprapatellar bursal distension. Mild prepatellar soft tissue edema extending inferiorly. Infection cannot be excluded on the basis of radiographic imaging. I f diagnostic arthrocentesis is not performed, further imaging options may include CT, MR, and/or scintigraphy, allowing for artifact generated by the prosthetic hardware. AUGIE DRAPER NP Jun 21, 2018 12:34
[2018-06-21 12:40] VITALS: Ht 170.2 cm; Wt 73.0 kg
[2018-06-21] MEDS ORDERED: morphine 2 MG INJ IV PRN (13:30)
[2018-06-21] MEDS ORDERED: NACL 0.9% 3 ML SYG IV SCH (13:30)
[2018-06-21] MEDS ORDERED: LIDOCAINE 1% (MPF) 30 ML INJ INJ SCH (13:30)
[2018-06-21] MEDS ORDERED: ACETAMINOPHEN 325 MG TAB PO PRN (13:30)
[2018-06-21] MEDS ORDERED: DIPHENHYDRAMINE 25 MG CAP PO PRN (13:30)
[2018-06-21] MEDS ORDERED: VANCOMYCIN IV PER PHARMACY XX SCH (13:30)
[2018-06-21 15:35] VITALS: BP 146/76; PULSE 74; RESP 18
[2018-06-21] MEDS ORDERED: PIPER-TAZO 3.375 GM IV (PMX) 100 ML IVPB SCH (18:00)
--- NOTE | 2018-06-21 18:16 | CONS ---
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 This time he is medically stable. I am recommending aspiration of the synovial fluid in order to obtain cultures and sensitivities to the bacteria. The patient will need at minimum an explant, irrigation debridement, and implantation of an antibiotic cement spacer. I discussed the surgery at length with the patient. I reviewed the benefits and risks with the patient. I discussed with the patient that ideally he would undergo a second stage with reimplantation a later date. However I did tell him that he failed to previous two-stage surgeries. He has a poor prognosis for cure. If it fails to cure infection will likely need a fusion versus above-knee amputation. He understood this. I reiterated to him that performing the first stage does not guarantee that I will do the second stage. Second stage is determined on clinical situation at that time. Unfortunately I do not have time this week or next week to perform the surgery. It will require further planning. If the patient does not show any signs of sepsis he can go home and follow up with me in clinic to schedule surgery. If he is showing signs of sepsis he will need to be started on antibiotics and the first stage surgery done in a more expeditious manner. Plan: Aspirate right knee sent for cell count, crystals, aerobic, anaerobic, fungal cultures Continue medical management per hospitalist. If stable patient can follow-up with me in clinic otherwise first stage surgery will need to be planned. Assessment/Plan (Daily) Right knee aspiration procedure: Risks and benefits aspiration reviewed with patient. The risks include infection, failure, pain, swelling, nerve/tendon/ligament damage. The patient verbalized understanding and verbal consent was obtained prior to procedure. The right knee was prepped in a sterile fashion with alcohol and chlorhexidine the site of aspiration was confirmed. Lateral approach was used. The skin and capsule was anesthetized with 3mL 1% lidocaine careful not to inject intra- articularly. The right knee was aspirated. 70 mL of purulent synovial fluid was aspirated. Good hemostasis was achieved and no complications noted. The patient tolerated the procedure well. Limit activity and ice for 24-48 hours Consultation Date/Type/Reason Admit Date/Time Jun 21, 2018 at 10:13 Date of Consultation: Jun 21, 2018 Reason for Consultation Concern for right total knee arthroplasty infection Date/Time of Note DATE: 06/21/18 TIME: 18:01 Hx of Present Illness Is a 63-year-old male who presented to the emergency department by [facility] for fevers and increasing right knee pain. Orthopedics was consulted as there is concern for infection. Patient's surgical history is complicated. He has had a total of 5 surgeries on his right knee. He underwent a right total knee arthroplasty approximately 6 years ago back in his home state of [place]. Patient states immediately after surgery there is concern for infection. He was given a PICC line and IV antibiotics. Shortly thereafter he did undergo a planned 2-stage surgery. Patient states that he did well to space for quite some time and he only completed the second stage when the spacer broke down. He did well after that until approximately 8 months ago when he moved down to [place] he was seen at [facility] where he was infected again. Unclear at this time if he underwent a formal two-stage or free underwent a single stage revision. He did well for a couple months however he did have new onset numbness and tingling in his foot after the surgery. Up until approximately 1.5-2 months he was doing well with minimal swelling and pain. Now he complains of pain, swelling, decreased range of motion in his right knee and fevers. After his surgery at [facility] he was on oral antibiotics. He did run out of his antibiotics a few weeks ago. When he was seen in the emergency department here he was given vancomycin and Zosyn ordered by the emergency department prior to my evaluation. The patient does continue to smoke tobacco/vape and smoke marijuana. Patient denies shortness of breath, chest pain, nausea/vomiting, constipation, diarrhea Past Medical History Denies past medical history Home Meds Active Scripts Cephalexin* (Keflex*) 500 Mg Capsule, 500 MG PO QID for 10 Days, CAP Prov:BRAULIO JESUSS Mahendra DO 05/30/18 Discontinued Scripts Hydrocodone/Acetaminophen ([place] 10-325 Tablet) 1 Each Tablet, 1 TAB PO Q6H PRN for PAIN, #16 TAB Prov:ANOOP JESUSSTCALS Mahendra DO 05/30/18 Sulfamethoxazole/Trimethoprim* (Bactrim Ds* Tablet) 1 Each Tablet, 1 TAB PO BID, #20 TAB Prov:DEION JESUS DO 05/30/18 Medications Current Medications IV Flush (NS 3 ml) 3 ml PER PROTOCOL IV ; Start 06/21/18 at 13:30 Acetaminophen (Tylenol Tab) 650 mg Q6H PRN PO .PAIN 1-3 OR TEMP; Start 06/21/18 at 13:30 Acetaminophen/ Hydrocodone Bitart ([place] (5/325)) 1 tab Q6H PRN PO .MOD PAIN 4- 6; Start 06/21/18 at 13:30 Morphine Sulfate (morphine) 2 mg Q4H PRN IV .SEVERE PAIN 7-10; Start 06/21/18 at 13:30 Diphenhydramine HCl (Benadryl) 25 mg Q6H PRN PO ITCHING; Start 06/21/18 at 13:30 Lidocaine (Xylocaine 1% (Mpf)) 30 ml ONCE INJ ; Start 06/21/18 at 13:30 Allergies: Coded Allergies: No Known Allergy (Unverified , 06/20/18) Past Surgical History Please see HPI for surgical history of right knee Social History Alcohol Use: occasionally Smoking Status: Current some day smoker Drug Use: marijuana Exam/Review of Systems Exam Vitals Vital Signs Date Temp Pulse Resp B/P (MAP) Pulse Ox O2 O2 Flow FiO2 Time Delivery Rate 06/21/18 98.0 74 18 146/76 97 Room Air 15:35 (99) Exam General: Alert, oriented x3. No Acute Distress. Heart: Regular rate and rhythm. Lungs: No respiratory distress. No accessory muscle use. Right lower Extremity: Long midline incision that is well-healed. There is a large +3 knee effusion. There is erythema around the knee. Specifically there is localized swelling and fluctuance over the anterior medial aspect of the knee. The knee is warm. There is tenderness to palpation diffusely around the knee. No skin breakdown, no surrounding erythema. Sensation Decreased to light touch in a sural, saphenous, deep peroneal, superficial peroneal, medial and lateral plantar nerve distribution. Motor is intact, patient able to dorsiflex and plantarflex ankle and extend and flex great toe. Dorsalis Pedis pulse +2, Brisk capillary refill. Compartments are soft. ROM: Extension: 10 Flexion: 100 Varus/ Valgus Stability: Stable in extension, flexion, and throughout range of motion A/P Stability: Stable Results Result Diagram: 06/20/18204906/20/182049 Results 24hrs Laboratory Tests Test 06/20/18 20:50 06/20/18 20:56 06/20/18 21:38 White Blood Count 10.5 Red Blood Count 4.38 L Hemoglobin 12.1 L Hematocrit 38.3 L Mean Corpuscular Volume 87.4 Mean Corpuscular Hemoglobin 27.6 L Mean Corpuscular Hemoglobin Concent 31.6 L Red Cell Distribution Width 15.1 H Platelet Count 394 Mean Platelet Volume 8.6 Immature Granulocytes % 0.600 H Neutrophils % 67.6 Lymphocytes % 17.7 Monocytes % 11.9 H Eosinophils % 1.7 Basophils % 0.5 Nucleated Red Blood Cells % 0.0 Immature Granulocytes # 0.060 H Neutrophils # 7.1 Lymphocytes # 1.9 Monocytes # 1.3 H Eosinophils # 0.2 Basophils # 0.1 Nucleated Red Blood Cells # 0.0 Prothrombin Time 12.6 Prothrombin Time Ratio 1.0 INR International Normalized Ratio 0.93 Activated Partial Thromboplast Time 27.7 Sodium Level 141 Potassium Level 4.8 Chloride Level 105 Carbon Dioxide Level 28 Anion Gap 8 Blood Urea Nitrogen 17 Creatinine 0.96 Est Glomerular Filtrat Rate mL/min > 60 Glucose Level 99 Calcium Level 9.1 Total Bilirubin 0.1 L Direct Bilirubin 0.00 Indirect Bilirubin 0.1 Aspartate Amino Transf (AST/SGOT) 34 Alanine Aminotransferase (ALT/SGPT) 16 Alkaline Phosphatase 130 H Total Protein 8.0 Albumin 3.7 Globulin 4.30 H Albumin/Globulin Ratio 0.86 POC Venous Lactate 0.9 Erythrocyte Sedimentation Rate 30 H C-Reactive Protein 2.2 H Imaging Imaging Xrays obtained in clinic today and personally reviewed by myself: Bilateral AP and merchant views and a dedicated lateral of the right knee demonstrates right knee s/p revision TKA with a cone and stem in the tibia and a stem in the femur. Components in good position and alignment. Possible signs of loosening with debonding of cement bone interface along the tibia. No signs of wear, osteolysis, component failure, or fracture. No acute complications. Medications Medication Current Medications IV Flush (NS 3 ml) 3 ml PER PROTOCOL IV ; Start 06/21/18 at 13:30 Acetaminophen (Tylenol Tab) 650 mg Q6H PRN PO .PAIN 1-3 OR TEMP; Start 06/21/18 at 13:30 Acetaminophen/ Hydrocodone Bitart ([place] (5/325)) 1 tab Q6H PRN PO .MOD PAIN 4- 6; Start 06/21/18 at 13:30 Morphine Sulfate (morphine) 2 mg Q4H PRN IV .SEVERE PAIN 7-10; Start 06/21/18 at 13:30 Diphenhydramine HCl (Benadryl) 25 mg Q6H PRN PO ITCHING; Start 06/21/18 at 13:30 Lidocaine (Xylocaine 1% (Mpf)) 30 ml ONCE INJ ; Start 06/21/18 at 13:30 EZE BYERS MD Jun 21, 2018 18:12
[2018-06-21 20:45] VITALS: BP 119/71; PULSE 69; RESP 19
[2018-06-22 01:43] VITALS: BP 121/70; PULSE 71; RESP 18
[2018-06-22 02:20] VITALS: BP 131/69; PULSE 72; RESP 18
--- NOTE | 2018-06-22 07:09 | CONS ---
Assessment/Plan Assessment/Plan Hospital Course (Demo Recall) 1) recurrent R knee joint infection this appears to be indolent as it is going on for several months he was free of infection after he got IV antibiotics in [place] pt here got vanco/zosyn prior to his knee aspiration cx he was also recently on cipro but that stopped about 10 days ago I will await cx results before re-initating antibiotics but likely he will need IV antibiotics [facility] records have been requested ESR and CRP are minimally elevated Consultation Date/Type/Reason Admit Date/Time Jun 21, 2018 at 10:13 Date of Consultation: Jun 22, 2018 Type of Consult ID Date/Time of Note DATE: 06/22/18 TIME: 06:58 Hx of Present Illness pt has a confusing hx with his R knee he had original R TKR in [facility] around 6 years ago he was told that when he left the hospital then there was an infection of his knee and given some oral antibiotics He eventually had to have a two stage surgery on his R knee. He was given a PICC line and given IV antibiotics for a prolonged course. He had trouble with follow up and never completed the two stage but the spacer t hat was in deteriorated and it had to be replaced. It is unclear why it was just replaced because according to him his knee was fine and free of infection. Nonetheless they replaced the spacer and soon afterwards he moved down to [place] to take care of his father. He then went to [facility] and completed his second stage. According to the patient he had bleeding issues with the knee and told him that he probably had some infection of the knee and was given an antibiotic Since then he has been on several different antibiotics including doxycycline, bactrim, keflex and cipro. He was given bactrim from [facility] but could not get follow up with them due to change in insurance. He states the best antibiotic recently was cipro He has occasional sweats and low grade fevers No N, V, D no cough, SOB his mobility has decreased but he still takes care of his father. Past Medical History no TB, DM, kidney ds, heart ds Home Meds Active Scripts Cephalexin* (Keflex*) 500 Mg Capsule, 500 MG PO QID for 10 Days, CAP Prov:LEKRYSTALOS,ANOOPSTCALS A. DO 05/30/18 Discontinued Scripts Hydrocodone/Acetaminophen ([place] 10-325 Tablet) 1 Each Tablet, 1 TAB PO Q6H PRN for PAIN, #16 TAB Prov:DEION JESUS DO 05/30/18 Sulfamethoxazole/Trimethoprim* (Bactrim Ds* Tablet) 1 Each Tablet, 1 TAB PO BID, #20 TAB Prov:DEION JESUS. DO 05/30/18 Medications Current Medications IV Flush (NS 3 ml) 3 ml PER PROTOCOL IV ; Start 06/21/18 at 13:30 Acetaminophen (Tylenol Tab) 650 mg Q6H PRN PO .PAIN 1-3 OR TEMP; Start 06/21/18 at 13:30 Acetaminophen/ Hydrocodone Bitart ([place] (5/325)) 1 tab Q6H PRN PO .MOD PAIN 4- 6; Start 06/21/18 at 13:30 Morphine Sulfate (morphine) 2 mg Q4H PRN IV .SEVERE PAIN 7-10; Start 06/21/18 at 13:30 Diphenhydramine HCl (Benadryl) 25 mg Q6H PRN PO ITCHING; Start 06/21/18 at 13:30 Lidocaine (Xylocaine 1% (Mpf)) 30 ml ONCE INJ ; Start 06/21/18 at 13:30 Allergies: Coded Allergies: No Known Allergy (Unverified , 06/20/18) Past Surgical History R shoulder surgery, luigi TKR Social History Alcohol Use: occasionally Smoking Status: Current some day smoker Drug Use: marijuana Exam/Review of Systems Exam Vitals Vital Signs Date Temp Pulse Resp B/P (MAP) Pulse Ox O2 O2 Flow FiO2 Time Delivery Rate 06/22/18 98.6 71 18 121/70 98 01:43 (87) 06/21/18 Room Air 15:35 Intake and Output 06/21/18 06/21/18 06/22/18 1515:00 23:00 07:00 IntakeIntake Total 120 ml OutputOutput Total 150 ml 300 ml BalanceBalance -30 ml -300 ml Constitutional: alert, oriented Eyes: nl sclera ENMT: mucosa pink and moist Respiratory: clear to auscultation Cardiovascular: regular rate and rhythm Gastrointestinal: soft, non-tender Musculoskeletal: other (R knee swelling with increase in heat and dull redness) Results Result Diagram: 06/22/18 0426 06/22/186 Results 24hrs Laboratory Tests Test 06/21/18 13:30 06/22/18 04:26 Synovial Fluid Source RIGHT KNEE Synovial Fluid Color YELLOW Synovial Fluid Appearance CLOUDY Synovial Fluid Volume 30.0 H Synovial Fluid WBC 54701 H Synovial Fluid Polynuclear WBCs % 82.0 H Synovial Fluid Mononuclear WBCs % 18.0 Synovial Fluid Crystals NO CRYSTALS SEEN White Blood Count 8.0 # Red Blood Count 4.42 L Hemoglobin 12.2 L Hematocrit 38.1 L Mean Corpuscular Volume 86.2 Mean Corpuscular Hemoglobin 27.6 L Mean Corpuscular Hemoglobin Concent 32.0 Red Cell Distribution Width 15.1 H Platelet Count 357 Mean Platelet Volume 8.5 Immature Granulocytes % 0.600 H Neutrophils % 54.7 Lymphocytes % 27.7 Monocytes % 12.5 H Eosinophils % 3.5 Basophils % 1.0 Nucleated Red Blood Cells % 0.0 Immature Granulocytes # 0.050 H Neutrophils # 4.4 Lymphocytes # 2.2 Monocytes # 1.0 H Eosinophils # 0.3 Basophils # 0.1 Nucleated Red Blood Cells # 0.0 Sodium Level 140 Potassium Level 5.1 Chloride Level 107 Carbon Dioxide Level 29 Anion Gap 4 L Blood Urea Nitrogen 16 Creatinine 0.97 Est Glomerular Filtrat Rate mL/min > 60 Glucose Level 86 Calcium Level 9.5 Phosphorus Level 4.0 Magnesium Level 2.4 C-Reactive Protein 2.8 H Medications Medication Current Medications IV Flush (NS 3 ml) 3 ml PER PROTOCOL IV ; Start 06/21/18 at 13:30 Acetaminophen (Tylenol Tab) 650 mg Q6H PRN PO .PAIN 1-3 OR TEMP; Start 06/21/18 at 13:30 Acetaminophen/ Hydrocodone Bitart ([place] (5/325)) 1 tab Q6H PRN PO .MOD PAIN 4- 6; Start 06/21/18 at 13:30 Morphine Sulfate (morphine) 2 mg Q4H PRN IV .SEVERE PAIN 7-10; Start 06/21/18 at 13:30 Diphenhydramine HCl (Benadryl) 25 mg Q6H PRN PO ITCHING; Start 06/21/18 at 13:30 Lidocaine (Xylocaine 1% (Mpf)) 30 ml ONCE INJ ; Start 06/21/18 at 13:30 TATE LORENZANA MD Jun 22, 2018 07:09
[2018-06-22 07:50] VITALS: BP 131/75; PULSE 71; RESP 20
[2018-06-22] MEDS: HYDROCODONE/APAP (5/325) TAB PO PRN ×2 (08:02→19:40)
--- NOTE | 2018-06-22 09:08 | PN ---
Date/Time of Note Date/Time of Note DATE: 06/22/18 TIME: 09:07 Assessment/Plan VTE Prophylaxis Risk score (from Ns)>0 risk: 2 SCD applied (from [facility] [place]): No SCD contraindicated: other Pharmacological prophylaxis: LMWH Lines/C[facility]ters [facility] Saline Lock Urinary Cath still in place: No Assessment/Plan Hospital Course SUBJECTIVE: The patient remains afebrile. Knee pain well controlled. OBJECTIVE: Physical Exam General: Adequately build 63 year-old male lying in bed in no apparent distress. HEENT: Normocephalic, atraumatic. Eyes: Anicteric sclerae, conjunctivae clear. ENT: Nasal septum midline, oral mucosa moist. Neck supple, no JVD noticed. Respiratory: Bilaterally clear breath sounds. No use of accessory muscles of respiration. No adventitious breath sounds. Cardiovascular: S1, S2 heard. Regular rate and rhythm. Abdomen: Soft, nontender, and nondistended. Bowel sounds positive in all 4 quadrants. Genitourinary: Deferred. Extremities: No cyanosis, no clubbing. Right knee edema with tenderness to touch. Erythema in the medial aspect of the right knee. Peripheral pulses palpable. Neurologic: Cranial nerves II through XII grossly intact. The patient is awake, alert, and oriented. Skin: Normal skin turgor. Labs & Vitals per chart ASSESSMENT & PLAN 63-year-old male with comorbidities including arthritis with multiple joint surgeries specifically multiple surgeries to his right knee joint and chronic right knee infection. The patient came to the hospital with complaint of right knee pain, edema, and subjective fevers with evidence of moderate to large joint effusion on the right knee, who was admitted to inpatient setting for further treatment and evaluation. 1. Moderate to large right knee joint effusion. -Suspect underlying infection. -Orthopedic surgery has been consulted. -Status post aspiration of the right knee on 06/21/2018. -Status post antimicrobials in the emergency room. -Hold antimicrobials until cultures are available. -ID following. -Patient does not appear septic at this time. 2. Normocytic anemia. -Etiology unclear. -Most probably anemia of chronic disease. -Monitor H&H closely. 3. Fluids, electrolytes, and nutrition. -Regular diet. 4. DVT prophylaxis -SQ Lovenox. 5. Plan. -Continue pain control. -Await cultures from right knee aspiration. The patient was seen in collaboration with Dr. Kemp. Result Diagram: 06/22/18 0426 06/22/18 0426 Results 24hrs Laboratory Tests Test 06/21/18 13:30 06/22/18 04:26 Synovial Fluid Source RIGHT KNEE Synovial Fluid Color YELLOW Synovial Fluid Appearance CLOUDY Synovial Fluid Volume 30.0 H Synovial Fluid WBC 44883 H Synovial Fluid Polynuclear WBCs % 82.0 H Synovial Fluid Mononuclear WBCs % 18.0 Synovial Fluid Crystals NO CRYSTALS SEEN White Blood Count 8.0 # Red Blood Count 4.42 L Hemoglobin 12.2 L Hematocrit 38.1 L Mean Corpuscular Volume 86.2 Mean Corpuscular Hemoglobin 27.6 L Mean Corpuscular Hemoglobin Concent 32.0 Red Cell Distribution Width 15.1 H Platelet Count 357 Mean Platelet Volume 8.5 Immature Granulocytes % 0.600 H Neutrophils % 54.7 Lymphocytes % 27.7 Monocytes % 12.5 H Eosinophils % 3.5 Basophils % 1.0 Nucleated Red Blood Cells % 0.0 Immature Granulocytes # 0.050 H Neutrophils # 4.4 Lymphocytes # 2.2 Monocytes # 1.0 H Eosinophils # 0.3 Basophils # 0.1 Nucleated Red Blood Cells # 0.0 Sodium Level 140 Potassium Level 5.1 Chloride Level 107 Carbon Dioxide Level 29 Anion Gap 4 L Blood Urea Nitrogen 16 Creatinine 0.97 Est Glomerular Filtrat Rate mL/min > 60 Glucose Level 86 Calcium Level 9.5 Phosphorus Level 4.0 Magnesium Level 2.4 C-Reactive Protein 2.8 H Exam/Review of Systems Exam Vitals Vital Signs Date Temp Pulse Resp B/P (MAP) Pulse Ox O2 O2 Flow FiO2 Time Delivery Rate 06/22/18 98.7 71 20 131/75 98 Room Air 07:50 (93) Intake and Output 06/21/18 06/21/18 06/22/18 1515:00 23:00 07:00 IntakeIntake Total 120 ml OutputOutput Total 150 ml 300 ml BalanceBalance -30 ml -300 ml Results Results 24hrs Laboratory Tests Test 06/21/18 13:30 06/22/18 04:26 Synovial Fluid Source RIGHT KNEE Synovial Fluid Color YELLOW Synovial Fluid Appearance CLOUDY Synovial Fluid Volume 30.0 H Synovial Fluid WBC 21773 H Synovial Fluid Polynuclear WBCs % 82.0 H Synovial Fluid Mononuclear WBCs % 18.0 Synovial Fluid Crystals NO CRYSTALS SEEN White Blood Count 8.0 # Red Blood Count 4.42 L Hemoglobin 12.2 L Hematocrit 38.1 L Mean Corpuscular Volume 86.2 Mean Corpuscular Hemoglobin 27.6 L Mean Corpuscular Hemoglobin Concent 32.0 Red Cell Distribution Width 15.1 H Platelet Count 357 Mean Platelet Volume 8.5 Immature Granulocytes % 0.600 H Neutrophils % 54.7 Lymphocytes % 27.7 Monocytes % 12.5 H Eosinophils % 3.5 Basophils % 1.0 Nucleated Red Blood Cells % 0.0 Immature Granulocytes # 0.050 H Neutrophils # 4.4 Lymphocytes # 2.2 Monocytes # 1.0 H Eosinophils # 0.3 Basophils # 0.1 Nucleated Red Blood Cells # 0.0 Sodium Level 140 Potassium Level 5.1 Chloride Level 107 Carbon Dioxide Level 29 Anion Gap 4 L Blood Urea Nitrogen 16 Creatinine 0.97 Est Glomerular Filtrat Rate mL/min > 60 Glucose Level 86 Calcium Level 9.5 Phosphorus Level 4.0 Magnesium Level 2.4 C-Reactive Protein 2.8 H Medications Medication Current Medications IV Flush (NS 3 ml) 3 ml PER PROTOCOL IV ; Start 06/21/18 at 13:30 Acetaminophen (Tylenol Tab) 650 mg Q6H PRN PO .PAIN 1-3 OR TEMP; Start 06/21/18 at 13:30 Acetaminophen/ Hydrocodone Bitart ([place] (5/325)) 1 tab Q6H PRN PO .MOD PAIN 4- 6 Last administered on 06/22/18at 08:02; Admin Dose 1 TAB; Start 06/21/18 at 13:30 Morphine Sulfate (morphine) 2 mg Q4H PRN IV .SEVERE PAIN 7-10; Start 06/21/18 at 13:30 Diphenhydramine HCl (Benadryl) 25 mg Q6H PRN PO ITCHING; Start 06/21/18 at 13:30 Lidocaine (Xylocaine 1% (Mpf)) 30 ml ONCE INJ ; Start 06/21/18 at 13:30 AUGIE DRAPER NP Jun 22, 2018 09:08
[2018-06-22 11:00] VITALS: BP 126/76; RESP 18
[2018-06-22 14:23] VITALS: BP 120/80; PULSE 77; RESP 18
[2018-06-22 20:30] VITALS: BP 139/67; PULSE 71; RESP 19
[2018-06-23 02:20] VITALS: BP 131/69; PULSE 72; RESP 18
--- NOTE | 2018-06-23 07:07 | CONS ---
Assessment/Plan Assessment/Plan Hospital Course (Demo Recall) 1) recurrent R knee joint infection this appears to be indolent as it is going on for several months he was free of infection after he got IV antibiotics in [place] pt here got vanco/zosyn prior to his knee aspiration cx he was also recently on cipro but that stopped about 10 days ago I will await cx results before re-initating antibiotics but likely he will need IV antibiotics [facility] records have been requested ESR and CRP are minimally elevated 06/23 - GNR (one colony) is growing in R knee synovial fluid start zosyn today to call dr. Aragon's office up in [facility] to get more info regarding his prior infections of R knee and prior treatments Consultation Date/Type/Reason Admit Date/Time Jun 21, 2018 at 10:13 Initial Consult Date 06/22/18 Type of Consult ID Date/Time of Note DATE: 06/23/18 TIME: 07:05 24 HR Interval Summary Free Text/Dictation pt states R knee is swelling up more no N, V, D no SOB Exam/Review of Systems Exam Vitals Vital Signs Date Temp Pulse Resp B/P (MAP) Pulse Ox O2 O2 Flow FiO2 Time Delivery Rate 06/23/18 98.7 72 18 131/69 97 02:20 (89) 06/22/18 Room Air 14:23 Intake and Output 06/22/18 06/22/18 06/23/18 1414:59 22:59 06:59 IntakeIntake Total 980 ml 240 ml OutputOutput Total 600 ml 600 ml BalanceBalance 380 ml -360 ml Constitutional: alert, oriented ENMT: mucosa pink and moist Cardiovascular: regular rate and rhythm Gastrointestinal: soft Extremities: other (R knee warm and swollen, no redness) Results Result Diagram: 06/23/187 06/23/18446 Results 24hrs Laboratory Tests Test 06/23/18 04:47 White Blood Count 8.3 Red Blood Count 4.34 L Hemoglobin 11.9 L Hematocrit 37.7 L Mean Corpuscular Volume 86.9 Mean Corpuscular Hemoglobin 27.4 L Mean Corpuscular Hemoglobin Concent 31.6 L Red Cell Distribution Width 15.2 H Platelet Count 349 Mean Platelet Volume 8.6 Immature Granulocytes % 0.700 H Neutrophils % 56.7 Lymphocytes % 27.0 Monocytes % 11.1 H Eosinophils % 3.7 Basophils % 0.8 Nucleated Red Blood Cells % 0.0 Immature Granulocytes # 0.060 H Neutrophils # 4.7 Lymphocytes # 2.2 Monocytes # 0.9 Eosinophils # 0.3 Basophils # 0.1 Nucleated Red Blood Cells # 0.0 Sodium Level 140 Potassium Level 4.4 Chloride Level 107 Carbon Dioxide Level 29 Anion Gap 4 L Blood Urea Nitrogen 22 H Creatinine 1.01 Est Glomerular Filtrat Rate mL/min > 60 Glucose Level 82 Calcium Level 9.3 Phosphorus Level 4.7 Magnesium Level 2.4 Medications Medication Current Medications IV Flush (NS 3 ml) 3 ml PER PROTOCOL IV ; Start 06/21/18 at 13:30 Acetaminophen (Tylenol Tab) 650 mg Q6H PRN PO .PAIN 1-3 OR TEMP; Start 06/21/18 at 13:30 Acetaminophen/ Hydrocodone Bitart ([place] (5/325)) 1 tab Q6H PRN PO .MOD PAIN 4- 6 Last administered on 06/22/18at 19:40; Admin Dose 1 TAB; Start 06/21/18 at 13:30 Morphine Sulfate (morphine) 2 mg Q4H PRN IV .SEVERE PAIN 7-10; Start 06/21/18 at 13:30 Diphenhydramine HCl (Benadryl) 25 mg Q6H PRN PO ITCHING Last administered on 06/23/18at 00:17; Admin Dose 25 MG; Start 06/21/18 at 13:30 Lidocaine (Xylocaine 1% (Mpf)) 30 ml ONCE INJ ; Start 06/21/18 at 13:30 Enoxaparin Sodium (Lovenox) 40 mg DAILY SC ; Start 06/23/18 at 09:00 TATE LORENZANA MD Jun 23, 2018 07:07
[2018-06-23 07:18] VITALS: BP 119/76; PULSE 64; RESP 18
[2018-06-23] MEDS: PIPER-TAZO 3.375 GM IV (PMX) 100 ML IVPB SCH ×2 (08:00→13:00)
[2018-06-23] MEDS ORDERED: ENOXAPARIN 40 MG/0.4 ML SYG SC SCH (09:00)
--- NOTE | 2018-06-23 10:19 | DS ---
Date/Time of Note Date/Time of Note DATE: 06/23/18 TIME: 10:18 Discharge Summary Admission/Discharge Info Admit Date/Time Jun 21, 2018 at 10:13 Discharge Date/Time Discharge Diagnosis 1. Moderate to large right knee joint effusion. 2. History of right knee joint replacement and chronic right knee joint infection. 3. Normocytic anemia. 4. Osteoarthritis. 5. Marijuana use. Patient Condition: Stable Consults 1. Felix Salazar MD, Orthopedic Surgery. 2. Jonatan Lockett MD, Infectious Diseases. Procedures Right Knee X-Ray IMPRESSION: Status post tricompartmental right knee arthroplasty. No interval change identified in the alignment and configuration of the prostheses. Moderate to large joint effusion including posterior capsular distension and suprapatellar bursal distension. Mild prepatellar soft tissue edema extending inferiorly. Infection cannot be excluded on the basis of radiographic imaging. If diagnostic arthrocentesis is not performed, further imaging options may include CT, MR, and/or scintigraphy, allowing for artifact generated by the prosthetic hardware. Hx of Present Illness This is a 63-year-old male with past medical history of arthritis and chronic infection of the right knee joint. The patient had multiple revisions of the right knee. The patient had his latest surgery about 8 months ago at the [facility]. As per the patient, his right knee joint was infected and he has been taking antibiotics as per the instructions of his primary care physicians. He also verbalized that he had a PICC line at one point of time for antimicrobial therapy. He does not follow an orthopedic surgeon as outpatient. The patient verbalized that his initial knee surgery was done in [facility]. The patient denied any fevers. He was complaining of chills. He has been taking marijuana for his right knee pain. The patient also verbalized difficulty in ambulation because of right knee pain. The patient was recently seen at [facility] emergency room in May 2018 where he had his right knee aspirated and the cultures were negative. In the emergency room, the patient underwent a right knee x-ray that was showing moderate to large joint effusion including posterior capsular distention and suprapatellar bursal distention. The patient also had a low-grade fever of 100.6 F. He had no leukocytosis. His ESR was elevated and there is C-reactive protein was elevated too. The patient was given a single dose of IV vancomycin and IV Zosyn in the emergency room. Hospital Course Orthopedic surgery consult and infectious disease consult was obtained. The patient underwent aspiration of the right knee joint on 06/21/2018. [place] [address]. Although, the patient received antibiotics in the emergency room, the patient was not continued on antibiotics since the patient did not appear septic. The orthopedic surgeon also agreed on holding on antibiotics. Patient's culture from the right knee joint aspiration showed one colony of Gram-negative rods. Therefore, the patient was initiated on Zosyn. Nevertheless, after conversation with the orthopedic surgeon, he desires not to start the patient on any antibiotics since that the patient does not appear to be septic. In addition, the orthopedic surgeon is planning on doing staged surgery on this patient. The orthopedic surgeon is planning to get cultures in the operating room. The patient will follow up with Dr. Salazar as outpatient next week. As per the orthopedic surgeon's notes, the patient will need at least an explant, irrigation debridement and implantation of an antibiotic cement spacer. A second stage with a reimplantation at a later date will also be needed as per the orthopedic surgeon. The patient has no chronic problems other than osteoarthritis. The patient is a current marijuana user and he was advised on cessation. The patient had a stable hospital course. The patient was cleared by consultants to be discharged home, to be followed up with outpatient orthopedic surgery at the earliest. Discharge Instructions 1. Take a regular diet. 2. Resume activities as tolerated. 3. Use [id number] analgesics for pain. 4. Please follow-up with orthopedic surgery (Dr. Salazar) next week. Please call for appointment. 5. Please go to the nearest emergency room if you continue to have significant swelling and redness of the right knee, persistent fevers, or any other unusual signs/symptoms. The patient verbalized understanding of his discharge instructions. At this time I would like to thank all the consultants for seeing the patient, doing the necessary procedures, and providing clinical recommendations. The patient was seen in collaboration with Dr. Kemp. Home Meds Discontinued Scripts Cephalexin* (Keflex*) 500 Mg Capsule, 500 MG PO QID for 10 Days, CAP Prov:LEANOOP FOSTERSTARSENIO A. DO 05/30/18 Hydrocodone/Acetaminophen ([place] 10-325 Tablet) 1 Each Tablet, 1 TAB PO Q6H PRN for PAIN, #16 TAB Prov:LEKRYSTALDEION WESTMriian WHITE 05/30/18 Sulfamethoxazole/Trimethoprim* (Bactrim Ds* Tablet) 1 Each Tablet, 1 TAB PO BID, #20 TAB Prov:DAINKRYSTALANOOP WESTULISES TannerMirian WHITE 05/30/18 Follow-up Plan Patient to follow-up with orthopedic surgery next week. Primary Care Provider Not On Staff Doctor Time spent on discharge: > 30 minutes Pending Labs Laboratory Tests Test 06/23/18 04:47 06/23/18 07:49 White Blood Count 8.3 10^3/ul (4.8-10.8) Red Blood Count 4.34 10^6/ul (4.70-6.10) Hemoglobin 11.9 g/dl (14.0-18.0) Hematocrit 37.7 % (42.0-52.0) Mean Corpuscular Volume 86.9 fl (82.0-101.0) Mean Corpuscular Hemoglobin 27.4 pg (29.0-33.0) Mean Corpuscular 31.6 g/dl (32.0-37.0) Hemoglobin Concent Red Cell Distribution Width 15.2 % (11.5-14.5) Platelet Count 349 10^3/UL (140-415) Mean Platelet Volume 8.6 fl (7.4-10.4) Immature Granulocytes % 0.700 % (0.001-0.429) Neutrophils % 56.7 % (39.0-77.0) Lymphocytes % 27.0 % (15.0-51.0) Monocytes % 11.1 % (0.0-11.0) Eosinophils % 3.7 % (0.0-7.0) Basophils % 0.8 % (0.0-2.0) Nucleated Red Blood Cells % 0.0 /100WBC (0.0-0.0) Immature Granulocytes # 0.060 10^3/ul (0.0-0.031) Neutrophils # 4.7 10^3/ul (1.6-7.5) Lymphocytes # 2.2 10^3/ul (0.8-2.9) Monocytes # 0.9 10^3/ul (0.3-0.9) Eosinophils # 0.3 10^3/ul (0.0-0.5) Basophils # 0.1 10^3/ul (0.0-0.1) Nucleated Red Blood Cells # 0.0 10^3/ul (0.0-0.0) Sodium Level 140 mmol/L (135-144) Potassium Level 4.4 mmol/L (3.5-5.1) Chloride Level 107 mmol/L (97-110) Carbon Dioxide Level 29 mmol/L (21-31) Anion Gap 4 (5-13) Blood Urea Nitrogen 22 mg/dl (7-20) Creatinine 1.01 mg/dl (0.61-1.24) Est Glomerular Filtrat > 60 mL/min (>60) Rate mL/min Glucose Level 82 mg/dl (70-220) Calcium Level 9.3 mg/dl (8.4-10.2) Phosphorus Level 4.7 mg/dl (2.5-4.9) Magnesium Level 2.4 mg/dl (1.7-2.5) Lab Scanned Report [facility] [id number] AUGIE DRAPER NP Jun 23, 2018 10:19
--- NOTE | 2018-06-23 10:29 | PDOCDIS ---
Discharge Instructions CONDITION [id number] Patient Condition: [id number] Stable HOME CARE INSTRUCTIONS: [id number] Diet Instructions: [id number] Regular FOLLOW UP/APPOINTMENTS Follow-up Plan Felix Salazar MD Specialty: Orthopedic Surgery Office Address [address] [place] [address], [address] [place] [address] Office OTHER ORDERS: Other Orders: 1. Take a regular diet. 2. Resume activities as tolerated. 3. Use [id number] analgesics for pain. 4. Please follow-up with orthopedic surgery (Dr. Salazar) next week. Please call for appointment. 5. Please go to the nearest emergency room if you continue to have significant swelling and redness of the right knee, persistent fevers, or any other unusual signs/symptoms. AUGIE DRAPER NP Jun 23, 2018 10:29
[2018-06-23 14:00] VITALS: BP 137/72; PULSE 73; RESP 18
== END 2018-06-23 14:40 | disposition home or self-care (01) | DRG 560 ==
LOC: E/R 19:31 → MS1 06-21 10:13
PROVIDERS: ADMIT Internal Medicine; ATTEND Internal Medicine
PROC: 0S9C4ZZ Drainage of Right Knee Joint, Percutaneous Endoscopic Approach (ICD-10-PCS; principal; 2018-06-21)
DX: T84.53XA Infection and inflammatory reaction due to internal right knee prosthesis, initial encounter (principal); L03.115 Cellulitis of right lower limb; M25.461 Effusion, right knee; D64.9 Anemia, unspecified; F17.200 Nicotine dependence, unspecified, uncomplicated; M19.90 Unspecified osteoarthritis, unspecified site; F12.90 Cannabis use, unspecified, uncomplicated; Y79.2 Prosthetic and other implants, materials and accessory orthopedic devices associated with adverse incidents
CPT/HCPCS: 36415; 73560; 73562; 73590; 80048; 80053; 83605; 83735; 84100; 85025; 85610; 85651; 85730; 86140; 87070; 87075; 87081; 87102; 87116; 89060; 96365; 96366; 96368; J1650; J2543; J3370

== ENCOUNTER → 2018-06-28 | Outpatient (CLI) | payer BC ==
--- NOTE | 2018-06-28 13:46 | CONS ---
Consult Date/Type/Reason Admit Date/Time Initial Consult Date Date/Time of Note DATE: 06/28/18 TIME: 13:39 Subjective This is a 63-year-old male who follows up with me today after inpatient consultation about 1 week ago. He originally presented to the emergency department by [facility] for fevers and increasing right knee pain. Orthopedics was consulted as there is concern for infection. Patient's surgical history is complicated. He has had a total of 5 surgeries on his right knee. He underwent a right total knee arthroplasty approximately 6 years ago back in his home state of [place]. Patient states immediately after surgery there is concern for infection. He was given a PICC line and IV antibiotics. Shortly thereafter he did undergo a planned 2-stage surgery. Patient states that he did well to space for quite some time and he only completed the second stage when the spacer broke down. He did well after that until approximately 8 months ago when he moved down to [place] he was seen at [facility] where he was infected again. Unclear at this time if he underwent a formal two-stage or free underwent a single stage revision. He did well for a couple months however he did have new onset numbness and tingling in his foot after the surgery. Up until approximately 1.5-2 months he was doing well with minimal swelling and pain. Now he complains of pain, swelling, decreased range of motion in his right knee and fevers. After his surgery at [facility] he was on oral antibiotics. He did run out of his antibiotics a few weeks ago. When he was seen in the emergency department here he was given vancomycin and Zosyn ordered by the emergency department prior to my evaluation. Once orthopedics was consulted and aspiration was performed which is growing Enterobacter cloacae. He is currently not taking any antibiotics. Denies fevers and chills. States depression his knee has significantly increased as well as the swelling. The patient does continue to smoke tobacco/vape and smoke marijuana. Patient denies shortness of breath, chest pain, nausea/vomiting, constipation, diarrhea Objective Vitals Weight: 158 pounds Height: 5 foot 7 inches Temperature: 99.0 Heart Rate: 95 Blood Pressure: 153/87 Exam General: Alert, oriented x3. No Acute Distress. Heart: Regular rate and rhythm. Lungs: No respiratory distress. No accessory muscle use. Right lower Extremity: Long midline incision that is well-healed. There is a large +3 knee effusion. There is erythema around the knee. Specifically there is localized swelling and fluctuance over the anterior medial aspect of the knee. The knee is warm. There is tenderness to palpation diffusely around the knee. No skin breakdown, no surrounding erythema. Sensation Decreased to light touch in a sural, saphenous, deep peroneal, superficial peroneal, medial and lateral plantar nerve distribution. Motor is intact, patient able to dorsiflex and plantarflex ankle and extend and flex great toe. Dorsalis Pedis pulse +2, Brisk capillary refill. Compartments are soft. ROM: Extension: 10 Flexion: 100 Varus/ Valgus Stability: Stable in extension, flexion, and throughout range of motion A/P Stability: Stable Results/Medications Home Meds Discontinued Scripts Cephalexin* (Keflex*) 500 Mg Capsule, 500 MG PO QID for 10 Days, CAP Prov:DEION JESUS DO 05/30/18 Assessment/Plan Hospital Course (Demo Recall) This is a 63-year-old male with a complicated surgical history to his right knee now presenting with recurrent chronic infection to his right total knee arthroplasty with positive cultures. At this time he is medically stable. The patient will need at minimum an explant, irrigation debridement, and implantation of an antibiotic cement spacer. I discussed the surgery at length with the patient. I reviewed the benefits and risks with the patient. I discussed with the patient that ideally he would undergo a second stage with reimplantation a later date. However I did tell him that he failed to previous two-stage surgeries. He has a poor prognosis for cure. If it fails to cure infection will likely need a fusion versus above-knee amputation. He understood this. I reiterated to him that performing the first stage does not guarantee that I will do the second stage. Second stage is determined on clinical situation at that time. Tentatively plan for first of two-stage right total knee revision next Tuesday, July 07. Patient will need preoperative clearance. A lengthy discussion ensued, where the patient was told 2 stage total knee revision with antibiotic spacer should be considered. The operative procedure was explained using diagrams and or three-dimensional models. The rehabilitation, the potential risks, benefits and alternatives were discussed at length. Specific risks discussed included but were not limited to excessive blood loss and the need for transfusion and therefore the risk of transmissible disease or transfusion reaction, continued/recurrent deep infection and the potential need for repetitive debridements, implant removal, fusion, amputation, long-term antibiotic therapy, possibly requiring de ep venous access, extensor mechanism complications, including subluxation or dislocation, disruption of the quadriceps or patellar tendon, fracture of the patella or avulsion of the tibial tuberosity, femoral, tibial or fibular fracture and the need for further surgery for fixation, neurovascular injury with temporary or permanent numbness, tingling, weakness or paralysis, arterial injury requiring surgery including possible amputation, deep venous thrombosis, pulmonary embolism and , persistent pain, weakness, or limp, late aseptic loosening and the need for revision, polyethylene wear-induced osteolysis and related problems, post-operative stiffness requiring closed manipulation, and finally, a wide variety of unanticipated medical problems. The opportunity to ask questions and address any concerns was provided. The patient would like to proceed with scheduling. EZE BYERS MD Jun 28, 2018 13:46
== END | disposition home or self-care (01) ==
LOC: HKI 10:11
PROVIDERS: ATTEND Orthopaedic Surgery Adult Reconstructive Orthopaedic Surgery
DX: T84.53XA Infection and inflammatory reaction due to internal right knee prosthesis, initial encounter (principal); Y83.9 Surgical procedure, unspecified as the cause of abnormal reaction of the patient, or of later complication, without mention of misadventure at the time of the procedure; Y92.89 Other specified places as the place of occurrence of the external cause
CPT/HCPCS: G0463

== ENCOUNTER → 2018-07-26 | Outpatient (CLI) | payer BC ==
[~2018-07-26] MED LIST changes: +ASPI-1044 PO; +Acetaminophen PO; -CEPH-443 PO; +GABA300C16 PO; -HYDR-3980 PO; +NICO-544 TRANSDERM; +PIPE3.374 IVPB; -SULF1TAB31 PO
--- NOTE | 2018-07-26 19:20 | CONS ---
Consult Date/Type/Reason Admit Date/Time Initial Consult Date Date/Time of Note DATE: 07/26/18 TIME: 19:08 Subjective DOS: 07/07/2018 Procedure: Stage I revision of right TKA 2.5 weeks s/p stage I revision of right TKA who returns today for follow up. The patient is on IV Zosyn. He is being followed by Dr. Sheldon Lockett from [place]. Patient denies any fevers and chills. He continues to have significant drainage from the anterior medial sinus that was excised. The drainage is bloody. It has slowed down over the last couple days. He has not been wearing his knee brace as he states drainage got on the brace. He has been placing some weight on the right lower extremity. Pain is moderate. Denies F/C. Denies N/T. Narcotic Pain medication: Yes Gait Aids: Walker Pain better than before surgery: No Pleased with outcome. Objective Vitals Weight: 156 pounds Height: 5 foot 7 inches Temperature: 97.8 Heart Rate: 62 Blood Pressure: 127/68 Respiratory Rate: 12 Exam General: Alert, oriented x3. No Acute Distress. Heart: Regular rate and rhythm. Lungs: No respiratory distress. No accessory muscle use. Right lower Extremity: Incision clean, dry, intact. There is an anterior medial proximal tibial wound at the previous location of the draining sinus. The skin edges are macerated. The previous excised and closed sinus has dehisced. There is fibrous tissue at the bed of the wound. No gross purulence. Bloody drainage. There is a large knee effusion. No surrounding erythema. Sensation intact to light touch in a sural, saphenous, deep peroneal, superficial peroneal, medial and lateral plantar nerve distribution. Motor is intact, patient able to dorsiflex and plantarflex ankle and extend and flex great toe. Dorsalis Pedis pulse +2, Brisk capillary refill. Compartments are soft. ROM: Not tested secondary to unstable nature of the spacer Results/Medications Home Meds Active Scripts Nicotine* (Nicotine* Patch) 7 mg/day Patch, 1 PATCH TRANSDERM DAILY, #30 PATC H.WK Prov:DAVIDA WALLACE 07/12/18 Gabapentin* (Gabapentin*) 300 Mg Capsule, 300 MG PO QHS for 30 Days, CAP Prov:EZE BYERS MD 07/12/18 Aspirin Delayed Release (Aspirin Delayed Release) 81 Mg Tablet., 81 MG PO BID for 42 Days Prov:EZE BYERS MD 07/12/18 [Acetaminophen Tab] 500 MG TAB No Conflict Check, 1000 MG PO Q8 for 10 Days, TAB Prov:EZE BYERS MD 07/12/18 Tkggguarxrnf-Qqef-Rewuvumx,Iso (ZOSYN 3.375 GM GALAXY BAG) 3.375 Gm/50 Ml Froz.piggy, 3.375 GM IVPB Q6 for 42 Days, EA Prov:EZE BYERS MD 07/12/18 Imaging AP and lateral of the right knee were obtained in clinic today and personally reviewed. Demonstrate status post explantation of right total knee arthroplasty with interim placement of antibiotic spacer. There are antibiotic beads seen in the joint. The tibial component of the spacer is in significant anterior slope. The femoral component of the spacer is in relatively good position. There are cement spacer dowels in the femur and tibia. Assessment/Plan Hospital Course (Demo Recall) 63-year-old male was multiply revised right knee 2.5 weeks status post stage I revision. Patient denies any fevers and chills. He is continued on his IV Zosyn. His anteromedial wound is very concerning at this point. If this does not heal he may need to return to surgery sooner for coverage. 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 He will most certainly need a plastic surgery consult prior to second stage for evaluation of medial gastrocnemius flap. Placing referral to wound care center. Prefer wound care to be done at [facility] as this would enable good and clear communication with me. I would like him to follow-up in 1 week for wound check to evaluate the wound. We will likely start wet-to-dry dressing changes at next visit. I also asked the patient to confirm his appointment with infectious disease. Patient should wear his knee brace in full extension at all times except for dressing changes. Refilled patient's oxycodone with 60 tablets. Started patient on gabapentin EZE BYERS MD July 26, 2018 19:19
--- NOTE | 2018-07-27 08:57 | RADRPT ---
PROCEDURE: Bilateral knee series CLINICAL INDICATION: Pain TECHNIQUE: AP weightbearing and lateral weightbearing views of the right left knees were obtained COMPARISON: Right knee study 07/07/2018 FINDINGS: There is a total left knee prosthesis without evidence of dislocation or loosening. No evidence of le ft knee joint effusion. There is an anterior midline right knee surgical staple line in place with so ft tissue swelling and small to moderate right suprapatellar knee joint effusion. Hardware involving the distal right femur and proximal tibia are unchanged. Specifically femoral component of a right kn ee arthroplasty is present. Fixation malorie involving the proximal right tibia is in good position. No a cute fractures or malalignment of the right knee. IMPRESSION: 1. Right knee hardware unchanged and in good position without loosening. Postsurgical changes involv ing the right knee with small to moderate right suprapatellar knee joint effusion. 2. Unremarkable left knee prosthesis. RPTAT:AAJJ Physician Crow Date Time Electronically viewed and signed by Physician Crow on 07/27/2018 08:56 BM/
== END | disposition home or self-care (01) ==
LOC: HKI 13:10
PROVIDERS: ATTEND Orthopaedic Surgery Adult Reconstructive Orthopaedic Surgery
DX: Z09 Encounter for follow-up examination after completed treatment for conditions other than malignant neoplasm (principal); Z96.651 Presence of right artificial knee joint

== ENCOUNTER → 2018-08-02 | Outpatient (CLI) | payer BC ==
--- NOTE | 2018-08-03 20:03 | CONS ---
Consult Date/Type/Reason Admit Date/Time Initial Consult Date Date/Time of Note DATE: 08/03/18 TIME: 19:58 Subjective DOS: 07/07/2018 Procedure: Stage I revision of right TKA 3 weeks s/p stage I revision of right TKA who returns today for follow up for wound check. The patient is on IV Zosyn. He is being followed by Dr. Sheldon Campo from [place]. Patient denies any fevers and chills. He continues to have sign ificant drainage from the anterior medial sinus that was excised. The drainage is bloody. It has slowed down over the last couple days. Overall he does not feel well and at times feels diaphoretic. Denies chest pain and shortness of breath. Pain is moderate. Denies F/C. Denies N/T. Narcotic Pain medication: Yes Gait Aids: Walker Pain better than before surgery: No Pleased with outcome. Objective Vitals Weight: 156 pounds Height: 5 foot 7 Temperature: 90.7 Heart Rate: 75 Blood Pressure: 134/81 Respiratory Rate: 16 Exam General: Alert, oriented x3. No Acute Distress. Heart: Regular rate and rhythm. Lungs: No respiratory distress. No accessory muscle use. Right lower Extremity: Incision clean, dry, intact. There is an anterior medial proximal tibial wound at the previous location of the draining sinus. There is fibrous tissue at the bed of the wound. No gross purulence. Bloody drainage. There is a large knee effusion. No surrounding erythema. Sensation intact to light touch in a sural, saphenous, deep peroneal, superficial peroneal, medial and lateral plantar nerve distribution. Motor is intact, patient able to dorsiflex and plantarflex ankle and extend and flex great toe. Dorsalis Pedis pulse +2, Brisk capillary refill. Compartments are soft. ROM: Not tested secondary to unstable nature of the spacer Results/Medications Home Meds Active Scripts Nicotine* (Nicotine* Patch) 7 mg/day Patch, 1 PATCH TRANSDERM DAILY, #30 PATCH.WK Prov:DAVIDA WALLACE 07/12/18 Gabapentin* (Gabapentin*) 300 Mg Capsule, 300 MG PO QHS for 30 Days, CAP Prov:EZE BYERS MD 07/12/18 Aspirin Delayed Release (Aspirin Delayed Release) 81 Mg Tablet., 81 MG PO BID for 42 Days Prov:EZE BYERS MD 07/12/18 [Acetaminophen Tab] 500 MG TAB No Conflict Check, 1000 MG PO Q8 for 10 Days, TAB Prov:EZE BYERS MD 07/12/18 Paeedwpbqwyd-Xvxw-Pipljach,Iso (ZOSYN 3.375 GM GALAXY BAG) 3.375 Gm/50 Ml Froz.piggy, 3.375 GM IVPB Q6 for 42 Days, EA Prov:EZE BYERS MD 07/12/18 Assessment/Plan Hospital Course (Demo Recall) 63-year-old male approximately 3 weeks status post stage I revision for multiply infected right total knee arthroplasty. At this time the biggest concern is anterior medial wound over his tibia. If this does not heal primarily he will likely need to have additional surgery for coverage in order for successful stag e I revision. At this time will refer him to the wound care center for further evaluation and treatment. He is to continue the IV Zosyn. He is to follow-up with Dr. campo as scheduled. He will most certainly need plastics to perform a medial gastroc flap for the second stage. Follow-up in 2 weeks for wound check and x-rays. Continue to wear hinged knee brace. Partial weightbearing is allowed. EZE BYERS MD August 03, 2018 20:03
== END | disposition home or self-care (01) ==
LOC: HKI 14:42
PROVIDERS: ATTEND Orthopaedic Surgery Adult Reconstructive Orthopaedic Surgery
DX: Z47.1 Aftercare following joint replacement surgery (principal); Z96.651 Presence of right artificial knee joint; Z79.82 Long term (current) use of aspirin

== ENCOUNTER → 2018-08-07 | Outpatient (CLI) | payer BC ==
--- NOTE | 2018-08-07 17:13 | CONS ---
Consult Date/Type/Reason Admit Date/Time Initial Consult Date Date/Time of Note DATE: 08/07/18 TIME: 16:56 Subjective DOS: 07/07/2018 Procedure: Stage I revision of right TKA 4 weeks s/p stage I revision of right TKA who returns today for follow up for wound check. The patient is on IV Zosyn. He is being followed by Dr. Sheldon Lockett from [place]. At last visit he was referred to the wound center at [facility] for evaluation and treatment of his anteromedial wound. Debridement of fibrous exudate was performed revealing the antibiotic spacer. Patient denies any fevers and chills. Overall he does not feel well and at times feels diaphoretic. Denies chest pain and shortness of breath. Pain is moderate. Denies F/C. Denies N/T. Narcotic Pain medication: Yes Gait Aids: Walker Pain better than before surgery: yes Pleased with outcome. Objective Vitals Weight: 156 pounds Height: 5 foot 7 inch Temperature: 97.6 Heart Rate: 97 Blood Pressure: 142/85 Respiratory Rate: 14 Exam Objective Vitals Weight: 156 pounds Height: 5 foot 7 Temperature: 90.7 Heart Rate: 75 Blood Pressure: 134/81 Respiratory Rate: 16 Exam General: Alert, oriented x3. No Acute Distress. Heart: Regular rate and rhythm. Lungs: No respiratory distress. No accessory muscle use. Right lower Extremity: Incision clean, dry, intact. There is an anterior medial proximal tibial wound at the previous location of the draining sinus. The wound's depth is down to bone and antibiotic spacer. It approximately 3 x 1 cm. No surrounding erythema. Sensation intact to light touch in a sural, saphenous, deep peroneal, superficial peroneal, medial and lateral plantar nerve distribution. Motor is intact, patient able to dorsiflex and plantarflex ankle and extend and flex great toe. Dorsalis Pedis pulse +2, Brisk capillary refill. Compartments are soft. ROM: Not tested secondary to unstable nature of the spacer Results/Medications Home Meds Active Scripts Nicotine* (Nicotine* Patch) 7 mg/day Patch, 1 PATCH TRANSDERM DAILY, #30 PATCH.WK Prov:DAVIDA WALLACE 07/12/18 Gabapentin* (Gabapentin*) 300 Mg Capsule, 300 MG PO QHS for 30 Days, CAP Prov:EZE BYERS MD 07/12/18 Aspirin Delayed Release (Aspirin Delayed Release) 81 Mg Tablet.dr, 81 MG PO BID for 42 Days Prov:EZE BYERS MD 07/12/18 [Acetaminophen Tab] 500 MG TAB No Conflict Check, 1000 MG PO Q8 for 10 Days, TAB Prov:EZE BYERS MD 07/12/18 Pztcipzmmvdu-Dgfr-Hmkydnfb,Iso (ZOSYN 3.375 GM GALAXY BAG) 3.375 Gm/50 Ml Froz.piggy, 3.375 GM IVPB Q6 for 42 Days, EA Prov:EZE BYERS MD 07/12/18 Assessment/Plan Hospital Course (Demo Recall) 63-year-old male 4 weeks status post stage I revision for multiply infected right total knee arthroplasty. The anteromedial wound from the previous draining sinus is not healing and continues to communicate with the antibiotic spacer. At this time I believe the best course of action would include consulting with a plastic surgeon for evaluation treatment for a medial gastroc flap. The medial gastroc flap would be done in conjunction with a repeat stage I. Once this was complete and the infection was eradicated and the flap has healed a stage II revision would be done. If this failed the patient would likely be looking at an above-knee amputation. This was discussed with the patient. In the meantime the patient should continue IV antibiotics and daily packing changes. EZE BYERS MD Aug 07, 2018 17:13
== END | disposition home or self-care (01) ==
LOC: HKI 13:20
PROVIDERS: ATTEND Orthopaedic Surgery Adult Reconstructive Orthopaedic Surgery
DX: Z47.1 Aftercare following joint replacement surgery (principal); Z96.651 Presence of right artificial knee joint